=== PATIENT | male | born 1950 ===

== ENCOUNTER → 2018-07-08 08:11 | Outpatient (CLI) | payer MEDICARE, OTHER, SELFPAY ==
--- NOTE | 2018-07-08 08:15 | DI.US.S_ITS ---
PROCEDURE: US ABDOMEN COMPLETE INDICATIONS: RIGHT UPPER QUADRANT PAIN TECHNIQUE: Real-time scanning was performed of the abdominal and retroperitoneal organs, with image documentation. COMPARISON: None. FINDINGS: Liver: Liver is normal in size and homogeneous in echotexture. Gallbladder: Surgically absent. Biliary ducts: Intrahepatic bile ducts are non-dilated. Extrahepatic bile duct caliber measures 4.0 mm. Normal is 6-7 mm or less in diameter, or 10 mm or less post-cholecystectomy. Pancreas: Visualized portions of the pancreas are sonographically normal. Spleen: Spleen is normal in size and homogeneous in echotexture. Kidneys: Kidneys are normal in size and echotexture. Right kidney measures 10.2 cm long; left kidney measures 9.9 cm long. No hydronephrosis or nephrolithiasis. No solid masses. Aorta: Visualized aorta is normal in caliber at less than 3 cm. Iliacs: Proximal common iliac arteries are normal in caliber at less than 2.5 cm. IVC: Intrahepatic inferior vena cava is patent. Miscellaneous: No free abdominal fluid. IMPRESSION: Prior cholecystectomy. Source of right upper quadrant pain is not seen. No biliary distention is found. Dictated by: Pedro Doyle M.D. on 07/08/2018 at 9:37 Approved by: Pedro Doyle M.D. on 07/08/2018 at 9:38
== END ==
PROVIDERS: PCP Internal Medicine; Visit Provider Internal Medicine Gastroenterology
DX: R10.11 Right upper quadrant pain (principal); Z90.49 Acquired absence of other specified parts of digestive tract
CPT/HCPCS: 76700

== ENCOUNTER → 2018-07-10 10:26 | Outpatient (CLI) | payer MEDICARE, OTHER, SELFPAY ==
[2018-07-10 12:11] LABS: Add Manual Diff / Slide Review NO; Basophils Percent Auto 0.6 % (0-2); Eosinophils Percent Auto 1.2 % (2-4); Hemoglobin 14.5 g/dL (13.5-17.5); Lymphocytes Percent Auto 19.8 % (25-40); Mean Corpuscular HGB Conc 34.6 % (30-36); Mean Corpuscular Hemoglobin 31.6 PG (26-34); Mean Corpuscular Volume 91.5 fL (80-100); Monocytes Percent Auto 8.8 % (3-14); Neutrophils Absolute Auto 5100 /uL (3000-5900); Neutrophils Percent Auto 69.6 % (50-75); Platelet Count 250 X10^3/uL (150-400); Red Blood Cell Count 4.59 X10^6/uL (4.5-5.9); White Blood Cell Count 7.4 X10^3/uL (4.5-11.0)
[2018-07-10 12:29] LABS: Alanine Aminotransferase 33 IU/L (21-72); Albumin 4.3 g/dL (3.5-5.0); Albumin Globulin Ratio 1.6 (1.0-2.8); Alkaline Phosphatase 71 U/L (38-126); Aspartate Aminotransferase 30 IU/L (17-59); Bilirubin Total 0.8 mg/dL (0.2-1.3); Blood Urea Nitrogen 23 mg/dL (9-20); Calcium 9.8 mg/dL (8.4-10.2); Carbon Dioxide 30 mmol/L (22-32); Chloride 101 mmol/L (98-107); Estimated Glomerular Filt Rate > 60.0 mL/min (>60); Gamma Glutamyl Transpeptidase 15 U/L (15-73); Globulin 2.7 g/dL (1.7-4.1); Glucose 91 mg/dL (80-110); HEMOLYSIS < 15 (0-50); Lipase 65 U/L (23-300); Potassium 4.9 mmol/L (3.4-5.1); Sodium 140 mmol/L (137-145)
[2018-07-10 12:35] LABS: Erythrocyte Sedimentation Rate 5 MM/HR (0-15)
== END ==
PROVIDERS: PCP Internal Medicine; Visit Provider Internal Medicine
DX: R10.84 Generalized abdominal pain (principal)
CPT/HCPCS: 36415; 80053; 82977; 83690; 85025; 85651

== ENCOUNTER → 2018-07-13 09:23 | Outpatient (CLI) | payer MEDICARE, OTHER, SELFPAY ==
--- NOTE | 2018-07-13 | DI.CT.S_ITS ---
PROCEDURE: CT ABDOMEN PELVIS WO CON INDICATIONS: GENERALIZED RIGHT UPPER QUADRANT ABDOMINAL PAIN TECHNIQUE: After the administration of oral contrast, 5 mm thick sections acquired from the diaphragms to the symphysis. 5 mm coronal and sagittal reformats were performed. For radiation dose reduction, the following was used: automated exposure control, adjustment of mA and/or kV according to patient size. COMPARISON: None. FINDINGS: Image quality: Excellent. ABDOMEN: Lung bases: Lung bases are clear. Heart size is normal. Solid organs: Liver is normal in size. Gallbladder is surgically absent. The spleen and adrenal glands are unremarkable. There is an ill-defined 2.3 cm area of heterogeneous hypoattenuation of the pancreatic head, best seen on axial image 34 of series 2. No hydronephrosis or nephrolithiasis. There is an ill-defined 1.6 cm exophytic soft tissue attenuation mass arising from the superior pole of the right kidney, best seen on axial image 25 of series 2. Peritoneum and bowel: Bowel loops demonstrate normal wall thickness and caliber. No free fluid or air. Nodes and vessels: No retroperitoneal or mesenteric adenopathy by size criteria. Aorta and inferior vena cava are normal in size. Miscellaneous: There is a small 1.0 cm fat-containing umbilical hernia. PELVIS: Genitourinary: Bladder wall thickness is normal. Miscellaneous: No inguinal hernias or adenopathy. Bones: Subcentimeter enostosis within the posteromedial aspect of the left 11th rib. There are multilevel degenerative changes of the lumbar spine with intervertebral disc spacer device at L5-S1. There are postsurgical changes of prior L5 posterior spinous process resection. IMPRESSION: #1. No acute infectious or inflammatory process within the abdomen or pelvis. #2. Suboptimal evaluation of the soft tissues due to the lack of intravenous contrast; within this context, there are possible lesions within the pancreatic head and superior pole of the right kidney. Consider MRI of the abdomen for further evaluation, or followup CT to demonstrate stability. Dictated by: Miguel Rodriguez M.D. on 07/13/2018 at 11:22 Approved by: Miguel Rodriguez M.D. on 07/13/2018 at 11:49
== END ==
PROVIDERS: PCP Internal Medicine; Visit Provider Internal Medicine
DX: R10.11 Right upper quadrant pain (principal)
CPT/HCPCS: 74176

== ENCOUNTER → 2018-07-27 11:04 | Outpatient (CLI) | payer MEDICARE, OTHER, SELFPAY ==
[2018-07-27 11:37] LABS: Blood Urea Nitrogen 19 mg/dL (9-20); Estimated Glomerular Filt Rate > 60.0 mL/min (>60)
== END ==
PROVIDERS: PCP Internal Medicine; Visit Provider Internal Medicine
DX: R10.84 Generalized abdominal pain (principal); R93.8 Abnormal findings on diagnostic imaging of other specified body structures
CPT/HCPCS: 36415; 82565; 84520

== ENCOUNTER → 2018-07-30 14:46 | Outpatient (CLI) | payer MEDICARE, OTHER, SELFPAY ==
--- NOTE | 2018-07-30 | DI.MRI.S_ITS ---
PROCEDURE: MR ABDOMEN WO/W CON INDICATIONS: ABDOMINAL PAIN AND ABNORMAL CT TECHNIQUE: Coronal HASTE, axial 2D FLASH in- and [id number]; axial breath-hold T2 FSE with fat saturation from the hepatic dome to the iliac crests. Oblique coronal thin-slice and radial thick slab HASTE through the biliary system. Dynamic axial VIBE during administration of contrast. Post-contrast coronal VIBE or 2D FLASH with fat saturation from the hepatic dome to the iliac crests. Optional diffusion weighted imaging and ADC may be performed. COMPARISON: [facility], CT, CT ABDOMEN PELVIS WO CON, 07/13/2018, 10:59. FINDINGS: Image quality: There is motion artifact limiting evaluation. Pancreas and biliary system: No peripancreatic edema or fluid collections. No discrete pancreatic mass identified. Pancreatic duct is normal in caliber. Solid organs: No focal hepatic mass lesions. Gallbladder is surgically absent. Spleen is normal in size and enhancement. No adrenal nodules. Kidneys demonstrate no hydronephrosis. Within the superior pole the right kidney anteriorly, there is a round enhancing mass measuring 1.3 x 1.5 x 1.4 cm. The mass abuts the posterior margin of the right hepatic lobe with effacement of the intervening fat plane. Early hepatic invasion cannot be excluded. No evidence of renal vein invasion. No left renal mass. Nodes and vessels: No retroperitoneal or mesenteric adenopathy by size criteria. Aorta and inferior vena cava are normal in size. Bowel and peritoneum: Visualized bowel loops are normal in caliber throughout. No free fluid. Lung bases: No basal pleural effusions. Heart size is normal. Bones and soft tissues: No ventral hernias. Bone marrow is normal in overall signal. IMPRESSION: 1. Small enhancing right renal mass most likely representing renal cell carcinoma. This abuts the right hepatic lobe, with early hepatic invasion not excluded. Dictated by: Vamsi Craig M.D. on 07/30/2018 at 17:55 Approved by: Vamsi Craig M.D. on 07/30/2018 at 18:06
== END ==
PROVIDERS: PCP Internal Medicine; Visit Provider Internal Medicine
DX: R10.9 Unspecified abdominal pain (principal); N28.89 Other specified disorders of kidney and ureter
CPT/HCPCS: 74183; A9579

== ENCOUNTER → 2019-01-28 18:03 | Outpatient (REF) | payer MEDICARE, OTHER, SELFPAY | LOC: LAB 18:03 | PROVIDERS: PCP Internal Medicine; Visit Provider Physician Assistant | DX: S91.002A Unspecified open wound, left ankle, initial encounter (principal) | CPT/HCPCS: 87070; 87075; 87205 ==

== ENCOUNTER → 2019-02-24 07:01 | Outpatient (CLI) | payer MEDICARE, OTHER, SELFPAY ==
[2019-02-24 08:59] LABS: Alanine Aminotransferase 36 IU/L (21-72); Albumin 4.3 g/dL (3.5-5.0); Albumin Globulin Ratio 1.5 (1.0-2.8); Alkaline Phosphatase 77 U/L (38-126); Aspartate Aminotransferase 33 IU/L (17-59); Bilirubin Total 0.8 mg/dL (0.2-1.3); Blood Urea Nitrogen 24 mg/dL (9-20); Calcium 9.6 mg/dL (8.4-10.2); Carbon Dioxide 27 mmol/L (22-32); Chloride 103 mmol/L (98-107); Cholesterol 179 mg/dL (140-199); Estimated Glomerular Filt Rate > 60.0 mL/min (>60); Globulin 2.8 g/dL (1.7-4.1); Glucose 87 mg/dL (80-110); HDL Cholesterol 64 mg/dL (40-60); HEMOLYSIS < 15 (0-50); LDL Cholesterol Calculated 96 mg/dL (<100); Potassium 4.6 mmol/L (3.4-5.1); Sodium 138 mmol/L (137-145); Total Protein 7.1 g/dL (6.3-8.2); Triglycerides 95 mg/dL (35-150)
== END ==
PROVIDERS: PCP Internal Medicine; Visit Provider Internal Medicine
DX: E78.00 Pure hypercholesterolemia, unspecified (principal)
CPT/HCPCS: 36415; 80053; 80061

== ENCOUNTER → 2019-09-15 13:47 | Outpatient (CLI) | payer MEDICARE, OTHER, SELFPAY ==
[2019-09-15 14:32] LABS: Add Manual Diff / Slide Review NO; Basophils Absolute Auto 0 /uL (0-100); Basophils Percent Auto 0.6 % (0-2); Eosinophils Absolute Auto 100 /uL (0-450); Eosinophils Percent Auto 1.6 % (2-4); Hematocrit 40.5 % (41-53); Hemoglobin 14.1 g/dL (13.5-17.5); Lymphocytes Absolute Auto 2000 /uL (1100-4500); Lymphocytes Percent Auto 25.2 % (25-40); Mean Corpuscular HGB Conc 34.9 % (30-36); Mean Corpuscular Hemoglobin 32.1 PG (26-34); Mean Corpuscular Volume 92.1 fL (80-100); Monocytes Absolute Auto 500 /uL (0-900); Monocytes Percent Auto 6.9 % (3-14); Neutrophils Absolute Auto 5200 /uL (1500-7000); Neutrophils Percent Auto 65.7 % (50-75); Platelet Count 253 X10^3/uL (150-400); Red Cell Distribution Width 12.9 % (11.6-14.8); White Blood Cell Count 7.9 X10^3/uL (4.5-11.0)
[2019-09-15 15:13] LABS: Prostate Specific Antigen < 0.064 ng/mL (0.10-4.00)
== END ==
PROVIDERS: PCP Internal Medicine; Visit Provider Internal Medicine
DX: C61 Malignant neoplasm of prostate (principal); R53.82 Chronic fatigue, unspecified
CPT/HCPCS: 36415; 84153; 85025

== ENCOUNTER → 2019-09-29 09:10 | Outpatient (CLI) | payer MEDICARE, OTHER, SELFPAY ==
--- NOTE | 2019-09-29 | DI.RAD.S_ITS ---
PROCEDURE: XR CHEST 2V INDICATIONS: CHRONIC COUGH TECHNIQUE: 2 views of the chest were acquired. COMPARISON: None. FINDINGS: Surgical changes and devices: None. Lungs and pleura: Lungs are clear. No pleural effusions or pneumothorax. Mediastinum: Mediastinal contours are normal. Heart size is normal. Bones and chest wall: No suspicious bony abnormalities. Soft tissues appear unremarkable. IMPRESSION: No acute pulmonary process. Dictated by: Cora Gonzalez M.D. on 09/29/2019 at 12:36 Approved by: Cora Gonzalez M.D. on 09/29/2019 at 12:36
[2019-09-29 16:23] LABS: HEMOLYSIS < 15 (0-50); Iron 101 ug/dL (49-181)
[2019-09-29 16:30] LABS: Transferrin 276 mg/dL (206-381)
[2019-10-01 14:03] LABS: Percent Iron Saturation 30 % (20-50); Total Iron Binding Capacity 340 ug/dL (261-462)
== END ==
PROVIDERS: PCP Internal Medicine; Visit Provider Internal Medicine
DX: R05 Cough (principal); D64.9 Anemia, unspecified
CPT/HCPCS: 36415; 71046; 83540; 83550; 85045

== ENCOUNTER → 2020-04-27 07:03 | Outpatient (CLI) | payer MEDICARE, OTHER, SELFPAY ==
[2020-04-27 08:44] LABS: Add Manual Diff / Slide Review NO; Basophils Absolute Auto 100 /uL (0-100); Basophils Percent Auto 0.8 % (0-2); Eosinophils Absolute Auto 200 /uL (0-450); Eosinophils Percent Auto 3.4 % (2-4); Hemoglobin 14.8 g/dL (13.5-17.5); Lymphocytes Absolute Auto 1900 /uL (1100-4500); Lymphocytes Percent Auto 29.9 % (25-40); Mean Corpuscular HGB Conc 34.4 % (30-36); Mean Corpuscular Hemoglobin 32.1 PG (26-34); Mean Corpuscular Volume 93.2 fL (80-100); Monocytes Absolute Auto 600 /uL (0-900); Monocytes Percent Auto 9.2 % (3-14); Neutrophils Absolute Auto 3600 /uL (1500-7000); Neutrophils Percent Auto 56.7 % (50-75); Platelet Count 275 X10^3/uL (150-400); Red Blood Cell Count 4.61 X10^6/uL (4.5-5.9); Red Cell Distribution Width 12.8 % (11.6-14.8); White Blood Cell Count 6.4 X10^3/uL (4.5-11.0)
[2020-04-27 08:55] LABS: Alanine Aminotransferase 29 IU/L (<50); Albumin 4.4 g/dL (3.5-5.0); Albumin Globulin Ratio 1.5 (1.0-2.8); Alkaline Phosphatase 82 U/L (38-126); Aspartate Aminotransferase 36 IU/L (17-59); BUN Creatinine Ratio 21.2 (6-22); Bilirubin Total 0.9 mg/dL (0.2-1.3); Blood Urea Nitrogen 22 mg/dL (9-20); Calcium 9.6 mg/dL (8.4-10.2); Carbon Dioxide 26 mmol/L (22-32); Chloride 103 mmol/L (98-107); Cholesterol 175 mg/dL (140-199); Estimated Glomerular Filt Rate > 60.0 mL/min (>60); Globulin 2.9 g/dL (1.7-4.1); Glucose 95 mg/dL (80-110); HDL Cholesterol 69 mg/dL (40-60); HEMOLYSIS < 15 (0-50); LDL Cholesterol Calculated 92 mg/dL (<100); Potassium 4.7 mmol/L (3.4-5.1); Sodium 137 mmol/L (137-145); Total Protein 7.3 g/dL (6.3-8.2); Triglycerides 70 mg/dL (35-150)
[2020-04-27 09:42] LABS: Hep C Virus Ab w/Reflex Quant NEGATIVE s/c (NEGATIVE)
== END ==
PROVIDERS: PCP Internal Medicine; Referring Provider Internal Medicine; Visit Provider Internal Medicine
DX: Z00.00 Encounter for general adult medical examination without abnormal findings (principal); E78.00 Pure hypercholesterolemia, unspecified; D64.9 Anemia, unspecified
CPT/HCPCS: 36415; 80053; 80061; 85025; 86803

== ENCOUNTER → 2020-10-23 14:47 | Outpatient (CLI) | payer MEDICARE, OTHER, SELFPAY ==
[2020-10-23 16:22] LABS: Prostate Specific Antigen Scrn < 0.064 ng/mL (0.1-4.0)
== END ==
PROVIDERS: PCP Internal Medicine; Referring Provider Internal Medicine; Visit Provider Internal Medicine
DX: C61 Malignant neoplasm of prostate (principal); Z12.5 Encounter for screening for malignant neoplasm of prostate
CPT/HCPCS: 36415; G0103

== ENCOUNTER → 2020-10-24 10:41 | Outpatient (CLI) | payer MEDICARE, OTHER, SELFPAY ==
--- NOTE | 2020-10-24 | DI.US.S_ITS ---
PROCEDURE: US SCROTUM INDICATIONS: The patient feels bilateral lungs. TECHNIQUE: Real-time scanning was performed of the scrotum and testicles, with image documentation. Color and pulse Doppler interrogation was performed of both testicles. COMPARISON: None. FINDINGS: Right: Testicle is normal in size at 3.8 x 1.9 x 2.9 cm, and homogenous in echotexture. There are a couple of epididymal cysts measuring 0.8 x 0.5 x 0.4 cm and 0.7 x 0.4 x 0.6 cm, correlating the patient's palpable abnormality. Epididymis is normal in overall size and morphology. No hydrocele or varicoceles. Overlying scrotal skin is normal in thickness. Left: Testicle is normal in size at 4.3 x 1.9 x 2 point cm, and homogeneous in echotexture. There is a 0.7 x 0.5 x 0.4 cm cyst in the left epididymal head, correlating with the palpable abnormality. The epididymal tail appears prominent with foci of calcification. No hydrocele or varicoceles. Overlying scrotal skin is normal in thickness. Doppler: Color and pulse Doppler demonstrate normal and symmetric arterial flow in both testicles. IMPRESSION: 1. Normal ultrasound appearance of testicles. No findings to suggest testicular torsion or testicular masses. 2. The patient's palpable abnormalities correspond to bilateral epididymal cysts. 3. Prominent left epididymal tail, demonstrating foci of calcifications but no increased vascularity. The clinical significance of the finding is indeterminate. If clinically indicated, a follow-up ultrasound may be obtained. Dictated by: Nani Ron M.D. on 10/24/2020 at 13:30 Approved by: Nani Ron M.D. on 10/24/2020 at 13:37
== END ==
PROVIDERS: PCP Internal Medicine; Referring Provider Internal Medicine; Visit Provider Internal Medicine
DX: N50.3 Cyst of epididymis (principal)
CPT/HCPCS: 76870

== ENCOUNTER → 2021-03-19 14:54 | Outpatient (CLI) | payer MEDICARE, OTHER, SELFPAY ==
[2021-03-19 15:35] LABS: Add Manual Diff / Slide Review NO; Basophils Absolute Auto 0 /uL (0-100); Basophils Percent Auto 0.5 % (0-2); Eosinophils Absolute Auto 100 /uL (0-450); Eosinophils Percent Auto 1.5 % (2-4); Hematocrit 39.3 % (41-53); Hemoglobin 13.8 g/dL (13.5-17.5); Lymphocytes Absolute Auto 1900 /uL (1100-4500); Lymphocytes Percent Auto 20.9 % (25-40); Mean Corpuscular HGB Conc 35.1 % (30-36); Mean Corpuscular Hemoglobin 32.5 PG (26-34); Mean Corpuscular Volume 92.7 fL (80-100); Monocytes Absolute Auto 700 /uL (0-900); Monocytes Percent Auto 7.4 % (3-14); Neutrophils Absolute Auto 6300 /uL (1500-7000); Neutrophils Percent Auto 69.7 % (50-75); Platelet Count 240 X10^3/uL (150-400); Red Blood Cell Count 4.24 X10^6/uL (4.5-5.9); Red Cell Distribution Width 12.7 % (11.6-14.8)
[2021-03-19 16:25] LABS: TSH w/ Reflex to FT4 0.58 uIU/mL (0.47-4.68)
== END ==
PROVIDERS: PCP Internal Medicine; Referring Provider Internal Medicine; Visit Provider Internal Medicine
DX: G47.33 Obstructive sleep apnea (adult) (pediatric) (principal); R53.82 Chronic fatigue, unspecified
CPT/HCPCS: 36415; 84443; 85025

== ENCOUNTER → 2021-03-21 10:30 | Outpatient (CLI) | payer MEDICARE, OTHER, SELFPAY ==
[2021-03-21 12:03] LABS: HEMOLYSIS < 15 (0-50); Iron 93 ug/dL (49-181)
[2021-03-21 12:13] LABS: Percent Iron Saturation 29 % (20-50); Total Iron Binding Capacity 317 ug/dL (261-462); Transferrin 252 mg/dL (206-381)
[2021-03-21 12:38] LABS: Ferritin 84 ng/mL (18-464)
== END ==
PROVIDERS: PCP Internal Medicine; Referring Provider Internal Medicine; Visit Provider Internal Medicine
DX: D64.9 Anemia, unspecified (principal)
CPT/HCPCS: 82728; 83540; 83550

== ENCOUNTER → 2021-07-24 11:39 | Outpatient (CLI) | payer MEDICARE, OTHER, SELFPAY ==
--- NOTE | 2021-07-24 | DI.MRI.S_ITS ---
PROCEDURE: MR LUMBAR SPINE WO CON INDICATIONS: Radiculopathy, lumbar region TECHNIQUE: Noncontrast sagittal T1 spin echo and T2 fast echo, sagittal STIR, axial T1 and T2 fast spin echo through the lumbar spine. In cases with scoliosis, additional coronal T2 fast spin echo may be performed. COMPARISON: [facility] [place], CR, XR LUMBAR SPINE 2 OR 3 VIEWS, 07/10/2021, 10:39. FINDINGS: Image quality: Excellent. Alignment and Curvature: There is normal bony alignment. Bones: Postsurgical changes compatible with L5-S1 interbody fusion and L5 laminectomy noted. Marrow is of normal overall signal. No acute vertebral body compression fractures. Spinal Cord: Conus medullaris terminates at the L1 level. Visualized cord demonstrates normal signal and size. Paraspinous Soft Tissues: No paravertebral masses. T12-L1: Loss of disc signal. No central stenosis. No neural foraminal narrowing. No neural compression. L1-L2: Loss of disc signal. Mild, diffuse disc bulge. Mild narrowing of the central canal. Mild bilateral neural foraminal narrowing. No neural compression. L2-L3: Loss of disc signal. Mild, diffuse disc bulge. Mild narrowing of the central canal. Mild bilateral neural foraminal narrowing. No neural compression. Fissure noted in the posterior annulus. L3-L4: Loss of disc signal. Mild, diffuse disc bulge. Mild bilateral facet hypertrophy. Mild to moderate narrowing of the central canal. Moderate bilateral neural foraminal narrowing. No neural compression L4-L5: Loss of disc signal. Mild, diffuse disc bulge. Small central disc protrusion. Mild bilateral facet hypertrophy. Mild narrowing of the central canal. Mild to moderate bilateral neural foraminal narrowing. No neural compression. Fissure noted in the posterior annulus. L5-S1: Status post discectomy and interbody fusion. Mild bilateral facet hypertrophy. No central stenosis. Mild right moderate left neural foraminal narrowing. No neural compression. IMPRESSION: 1. Status post L5-S1 interbody fusion and L5 laminectomy. 2. Mild multilevel degenerative disease. 3. Multiple mild multilevel facet arthropathy. 4. No severe central canal narrowing. 5. No severe neural foraminal narrowing. 6. No neural compression. 7. L2-L3 and L4-L5 disc annulus fissures. Dictated by: Jeannie Bazan MD, PhD on 07/24/2021 at 17:26 Approved by: Jeannie Bazan MD, PhD on 07/24/2021 at 17:29
== END ==
PROVIDERS: PCP Internal Medicine; Referring Provider Orthopaedic Surgery Orthopaedic Surgery of the Spine; Visit Provider Orthopaedic Surgery Orthopaedic Surgery of the Spine
DX: M51.16 Intervertebral disc disorders with radiculopathy, lumbar region (principal); M47.26 Other spondylosis with radiculopathy, lumbar region; M47.27 Other spondylosis with radiculopathy, lumbosacral region; Z98.1 Arthrodesis status
CPT/HCPCS: 72148

== ENCOUNTER → 2021-08-24 10:43 | Outpatient (CLI) | payer MEDICARE, OTHER, SELFPAY ==
--- NOTE | 2021-08-24 | DI.US.S_ITS ---
PROCEDURE: US PERIPH VENOUS LOW EXTREM RT INDICATIONS: RIGHT CALF DVT TECHNIQUE: Real-time imaging, as well as color and pulse Doppler interrogation, were performed of the lower extremity deep veins from the inguinal ligament to the popliteal fossa. COMPARISON: None. FINDINGS: The common femoral, femoral and popliteal veins are normally compressible, and free of intraluminal thrombus. Color and pulse Doppler demonstrate normal phasic intraluminal flow. There is normal augmentation response to distal compression maneuver. At the area of palpable concern involving the right posterior calf, there is a 7 x 5 x 5 mm superficial nonvascular focus seen. IMPRESSION: Negative for deep venous thrombosis. A 7 mm nonvascular focus is seen superficially corresponding to the area of palpable abnormality. This is nonspecific, although it may be related to a sebaceous cyst or potentially a thrombosed portion of a superficial vein. Dictated by: Bryson Roa M.D. on 08/24/2021 at 10:51 Approved by: Bryson Roa M.D. on 08/24/2021 at 10:53
== END ==
PROVIDERS: PCP Internal Medicine; Referring Provider Internal Medicine; Visit Provider Internal Medicine
DX: I82.4Z1 Acute embolism and thrombosis of unspecified deep veins of right distal lower extremity (principal)
CPT/HCPCS: 93971

== ENCOUNTER → 2021-08-28 11:24 | Outpatient (CLI) | payer MEDICARE, OTHER, SELFPAY ==
--- NOTE | 2021-08-28 | DI.RAD.S_ITS ---
PROCEDURE: XR THORACIC SPINE 2V INDICATIONS: Pain in thoracic spine TECHNIQUE: 3 views of the thoracic spine were acquired. COMPARISON: None. FINDINGS: Bones: No fractures or dislocations. No suspicious bony lesions. Twelve pairs of ribs are noted, and appear intact where visualized. Moderate degenerative disc changes noted throughout the thoracic spine. Soft tissues: No paravertebral stripe thickening. Cholecystectomy clips. IMPRESSION: 1. Moderate multilevel degenerative disc disease. 2. No fracture. No acute osseous lesion. If symptoms and/or clinical suspicion for pathology persists, evaluation with MRI should be considered for further assessment. Dictated by: Jeannie Bazan MD, PhD on 08/28/2021 at 16:48 Approved by: Jeannie Bazan MD, PhD on 08/28/2021 at 16:54
== END ==
PROVIDERS: PCP Internal Medicine; Referring Provider Internal Medicine; Visit Provider Internal Medicine
DX: M54.6 Pain in thoracic spine (principal); M47.814 Spondylosis without myelopathy or radiculopathy, thoracic region; G89.29 Other chronic pain
CPT/HCPCS: 72070

== ENCOUNTER → 2021-09-25 14:35 | Outpatient (CLI) | payer MEDICARE, OTHER, SELFPAY ==
--- NOTE | 2021-09-25 | DI.US.S_ITS ---
PROCEDURE: US PERIPH VENOUS LOW EXTREM LT INDICATIONS: EDEMA. MASS TECHNIQUE: Real-time imaging, as well as color and pulse Doppler interrogation, were performed of the lower extremity deep veins from the inguinal ligament to the popliteal fossa. COMPARISON: None. FINDINGS: The common femoral, femoral and popliteal veins are normally compressible, and free of intraluminal thrombus. Color and pulse Doppler demonstrate normal phasic intraluminal flow. There is normal augmentation response to distal compression maneuver. IMPRESSION: No evidence of left lower extremity DVT. Dictated by: Luis F Serrato M.D. on 09/25/2021 at 15:54 Approved by: Luis F Serrato M.D. on 09/25/2021 at 16:38
== END ==
PROVIDERS: PCP Internal Medicine; Referring Provider Internal Medicine; Visit Provider Internal Medicine
DX: R22.42 Localized swelling, mass and lump, left lower limb (principal)
CPT/HCPCS: 93971

== ENCOUNTER 2021-11-21 13:45 | Outpatient (RCR) | payer MEDICARE, OTHER, SELFPAY ==
--- NOTE | 2021-10-16 18:01 | PT.OIE ---
Current Diagnoses Other chronic pain (10/16/21) Low back pain, unspecified (10/16/21) Pain in thoracic spine (10/16/21) Past Medical History (Last Reviewed 10/15/21 @ 15:39 by Parth Weinberg MD) Finger laceration Visit Care Team Role Provider Type Cameron Johnson MD Attending Provider Physician Family Provider Primary Care Provider Referring Provider Specialty: Internal Medicine Address: [address] [place] [address], [facility] Email: [email or web address] Physical Therapy Initial Evaluation PT-OP-A Visit Information Start: 10/10/21 17:47 Freq: Status: Active Protocol: Document 10/16/21 09:06 MARY ALICE (Rec: 10/16/21 09:50 JG [id number]) Out-Patient Physical Therapy Visit Information Visit Information Visit Type Initial Evaluation Visit Note SPT Ángela was directly supervised by CARRIE Shin Visit Start Time 09:06 Visit Stop Time 09:48 Total Visit Minutes 42 Visit Number 1 Number of PICTURES EDITOR Visits 0 PT-OP-B Current Condition Start: 10/10/21 17:47 Freq: Status: Active Protocol: Document 10/16/21 09:06 JG (Rec: 10/16/21 09:50 JG [id number]) Current Condition History of Current Condition Onset Date 2004 Current Complaints LB pain w/bilat radiating pain down to calfs, thoracic muscle pain History of Current Condition Lumbar injury in 2004 mounting care tires. PT 2004-. L5-S1 fusion in 2005 w/poor results. 2008 L5-S1 surgery redone. Mild-mod improvement. Adapted lifestyle since. 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 Bilat pain in lumbosacral region w/radiating pain down to calfs. Similar side to side. See pt provided paperwork scanned into chart. Prior Treatments and Tests L5-S1 fusion in 2005 after 2004 injury, surgery to redo 2007. spinal block 2020 w/no relief. PT, medication, specialists. X-ray and MRI imaging 08/07 w/no evidence of injury or significant defect that required surgery. Imaging does show multilevel degenerative disease, multiple mild multilevel facet arthropathy, L2-L3 and L4-L5 disc annulus fissures. See pt provided paperwork scanned into chart. Future Testing and Treatments Planned None planned currently Treatment Goals Patient/Caregiver Goals exercises and stretches to improve thoracic and lumbar spine posture and pain PT-OP-C Subjective Start: 10/10/21 17:47 Freq: Status: Active Protocol: Document 10/16/21 09:06 JG (Rec: 10/16/21 09:50 JG [id number]) OP-PT Pain Assessment Location Lumbar Intensity 8 Scale Used Numeric (0 - 10) Description Aching,Burning,Radiating Pain Duration 8 at worst, 1 at best, after a few hours Radiating Location bilat pelvic floor, lateral, posterior, and medial thigh, post/lat calf Pain Aggravating Factors None,Position,ADL's,Activity, Exercise,Standing,Sitting, Walking,Stair Climbing,Bending ,Lifting,Coughing Pain Alleviating Factors Heat,Massage,Distraction Other Pain Alleviating Factors self-traction in hooklying w/ calfs on sofa while on floor PT-OP-F Manual Assessment Start: 10/10/21 17:47 Freq: Status: Active Protocol: Document 10/16/21 09:06 JG (Rec: 10/16/21 16:06 JG [id number]) Manual Assessments Soft Tissue Assessment Soft Tissue Mobility Assessment Hypertonic lateral oblique and lumbar paraspinal muscles bilat PT-OP-J Posture/Palpation/Skin Start: 10/10/21 17:47 Freq: Status: Active Protocol: Document 10/16/21 09:06 JG (Rec: 10/16/21 09:54 JG [id number]) Posture Evaluation Lilibeth Postural Classification System Lumbar Protective Mechanism Left AP 0 Lumbar Protective Mechanism Right AP 0 Lumbar Protective Mechanism Left PA 0 Lumbar Protective Mechanism Right PA 0 Palpation Assessment Location Pelvis Palpation Details Illiac crest appear to be level. ASIS and PSIS appear to be level. PSIS is where pt feels is the margoth of pain PT-OP-K Range of Motion Start: 10/10/21 17:47 Freq: Status: Active Protocol: Document 10/16/21 09:06 JG (Rec: 10/16/21 09:50 JG [id number]) Lumbar Spine Range of Motion Lumbar Spine Active Degrees Flexion 30 Extension 10 Comments w/flex quadrants very limited and shows limited lumbar motion w/flattening of lumbar spine; SB goes into flex and into contralateral rotation and notes contralateral tightness in back Hip Goniometric Range of Motion Hip Right Passive Comments R 82 w/o pelvis movement, 105 with L 93 w/o pelvis movement, 105 with Right Active Flexion w/Knee Flexed 82 Straight Leg Raise 75 Comments 108 flex w/innominate& lumbosacral motion Left Active Flexion w/Knee Flexed 93 Straight Leg Raise 55 Comments 105 flex w/innominate& lumbosacral motion PT-OP-L Special Tests Start: 10/10/21 17:47 Freq: Status: Active Protocol: Document 10/16/21 09:06 JG (Rec: 10/16/21 09:50 JG [id number]) Special Tests Lumbar Spine Special Tests HS Test Results lacking 20 deg to neutral w/90 /90 HS testing L: R lacking 24 deg Straight Leg Raise Test Results positive Comments increased w/DF bilat, not increased w/cervical flex PT-OP-M Strength Start: 10/10/21 17:47 Freq: Status: Active Protocol: Document 10/16/21 09:06 JG (Rec: 10/16/21 09:50 JG [id number]) Hip Strength Hip Manual Muscle Testing Right Flexion (L2) 5 Normal Extension (S1) 4 Good Abduction 3 Fair Adduction 4 Good External Rotation 4 Good Internal Rotation 5 Normal Left Flexion (L2) 5 Normal Extension (S1) 4 Good Abduction 4 Good Adduction 4 Good External Rotation 4 Good Internal Rotation 5 Normal Knee Strength Knee Manual Muscle Testing Right Flexion (S2) 5 Normal Extension (L3) 5 Normal Left Flexion (S2) 5 Normal Extension (L3) 5 Normal Ankle/Foot Strength Ankle and Foot Manual Muscle Testing Right Dorsiflexion (L4) 5 Normal Plantarflexion (S1) 5 Normal Left Dorsiflexion (L4) 5 Normal Plantarflexion (S1) 5 Normal Comments 20 heel raises B PT-OP-T Assessment and Plan Start: 10/10/21 17:47 Freq: Status: Active Protocol: Document 10/16/21 09:06 JG (Rec: 10/16/21 09:50 JG [id number]) Physical Therapy Assessment Rehab Potential Rehabilitation Potential Good Evaluation Complexity Number of Personal Factors/Comorbidities 3 or More Number of Body Systems Impaired 4 or More Clinical Presentation at Evaluation Stable Impairments Impairments Activity Tolerance,Functional Activities,Functional Mobility ,Pain,Posture,ROM,Strength Goals 4 Impairment Walking up and down hills increases lumbar pain Software Development Engineer Goal (LTG) Walking up and down hills does not increase lumbar pain LTG Duration 01/14/22 3 Impairment Sleeping is freq difficult due to lumbar pain Short Term Goal (STG) Pt will be proficient in sleep propping STG Duration 11/15/21 Half-Way Goal (LTG) Pt does not experience sleep disturbances due to lumbar pain LTG Duration 01/14/22 2 Impairment Thoracic pain w/standing and completing chest-high work Half-Way Goal (LTG) Able to complete 30 minutes of chest-high work in standing w /o thoracic pain LTG Duration 01/14/22 1 Impairment Lumbar pain w/lifting items heavier than 15+pounds, sitting for >1 hour, standing Short Term Goal (STG) Pt will be able to demostrate good lifting mechanics w/light weight STG Duration 11/15/21 Half-Way Goal (LTG) Pt is able to lift medium weights and thigh-high heavy items without increase in pain LTG Duration 01/14/22 Assessment Summary Assessment Pt is 71 year old male with long history of lumbosacral and thoracic pain. He has undergone two L5-S1 surgeries and utilized multiple treatments including PT, medication, spinal block with mild to mod results. Pt reinjured his lumbosacral region while landscaping in May and has not had relief using typical strategies. Pt was previously able to complete home and gardening tasks with altered methods like bracing, but currently is unable to lift more than 15 pounds, walk up/down hills, sit for >1 hour without pain. Pt is also experiencing chronic thoracic back pain that is typically relieved w/ stretching and ceasing chest- high activity. Pt has limited lumbar flex and ext, positive SL raise, painful lumbar ext, and painful right and left flex quadrant. Pt would benefit PT for increasing pain -free lumbar ROM and decrease neural tension which will likely increase pain-free lifting ability, ability to ascend/descend hills without pain, and sit for >1 without pain. Physical Therapy Plan Frequency and Duration Frequency of Treatment 2x/Week Duration of Treatment 3 months Plan of Care Start Date 10/16/21 Plan of Care End Date 01/14/22 Therapeutic Interventions Therapeutic Interventions Aquatic Therapy,Gait Training, Home Exercise Program,Joint Mobilizations,Manual Therapy, Neuromuscular Re-education, Patient/Caregiver Education, Self-Care/Home Management,Soft Tissue Mobilization,Taping, Therapeutic Activities, Therapeutic Exercises Modalities Electric Stimulation,Hot Packs Next Visit Focus/Plan Next Note Type Treatment Note Next Visit Plan Complete Oswestry questionnaire (missing last 4 questions). Active lumbar ROM exercises. Core training. Lumbar mob. Pelvis mobs. SI joint assessment.
--- NOTE | 2021-10-16 18:10 | PT.OPPOC ---
Physical, Occupational & Speech Therapy At [facility] Current Diagnoses Other chronic pain (10/16/21) Low back pain, unspecified (10/16/21) Pain in thoracic spine (10/16/21) Visit Care Team Role Provider Type Cameron Johnson MD Attending Provider Physician Family Provider Primary Care Provider Referring Provider Specialty: Internal Medicine Address: [address] [place] [address], [facility] Email: [email or web address] Of Care PT-OP-T Assessment and Plan Start: 10/10/21 17:47 Freq: Status: Active Protocol: Document 10/16/21 09:06 MARY ALICE (Rec: 10/16/21 09:50 JRadha [id number]) Physical Therapy Assessment Rehab Potential Rehabilitation Potential Good Evaluation Complexity Number of Personal Factors/Comorbidities 3 or More Number of Body Systems Impaired 4 or More Clinical Presentation at Evaluation Stable Impairments Impairments Activity Tolerance,Functional Activities,Functional Mobility ,Pain,Posture,ROM,Strength Goals 4 Impairment Walking up and down hills increases lumbar pain Snf Goal (LTG) Walking up and down hills does not increase lumbar pain LTG Duration 01/14/22 3 Impairment Sleeping is freq difficult due to lumbar pain Short Term Goal (STG) Pt will be proficient in sleep propping STG Duration 11/15/21 Administrative Operations Coordinator Goal (LTG) Pt does not experience sleep disturbances due to lumbar pain LTG Duration 01/14/22 2 Impairment Thoracic pain w/standing and completing chest-high work Administrative Operations Coordinator Goal (LTG) Able to complete 30 minutes of chest-high work in standing w /o thoracic pain LTG Duration 01/14/22 1 Impairment Lumbar pain w/lifting items heavier than 15+pounds, sitting for >1 hour, standing Short Term Goal (STG) Pt will be able to demostrate good lifting mechanics w/light weight STG Duration 11/15/21 Snf Goal (LTG) Pt is able to lift medium weights and thigh-high heavy items without increase in pain LTG Duration 01/14/22 Assessment Summary Assessment Pt is 71 year old male with long history of lumbosacral and thoracic pain. He has undergone two L5-S1 surgeries and utilized multiple treatments including PT, medication, spinal block with mild to mod results. Pt reinjured his lumbosacral region while landscaping in May and has not had relief using typical strategies. Pt was previously able to complete home and gardening tasks with altered methods like bracing, but currently is unable to lift more than 15 pounds, walk up/down hills, sit for >1 hour without pain. Pt is also experiencing chronic thoracic back pain that is typically relieved w/ stretching and ceasing chest- high activity. Pt has limited lumbar flex and ext, positive SL raise, painful lumbar ext, and painful right and left flex quadrant. Pt would benefit PT for increasing pain -free lumbar ROM and decrease neural tension which will likely increase pain-free lifting ability, ability to ascend/descend hills without pain, and sit for >1 without pain. Physical Therapy Plan Frequency and Duration Frequency of Treatment 2x/Week Duration of Treatment 3 months Plan of Care Start Date 10/16/21 Plan of Care End Date 01/14/22 Therapeutic Interventions Therapeutic Interventions Aquatic Therapy,Gait Training, Home Exercise Program,Joint Mobilizations,Manual Therapy, Neuromuscular Re-education, Patient/Caregiver Education, Self-Care/Home Management,Soft Tissue Mobilization,Taping, Therapeutic Activities, Therapeutic Exercises Modalities Electric Stimulation,Hot Packs Next Visit Focus/Plan Next Note Type Treatment Note Next Visit Plan Complete Oswestry questionnaire (missing last 4 questions). Active lumbar ROM exercises. Core training. Lumbar mob. Pelvis mobs. SI joint assessment. Plan of Care Dates Plan of Care Start Date 10/16/21 Plan of Care End Date 01/14/22 Electronically Signed by: Aleida Aponte, PT 10/16/21 5250 Please Sign and Return: I have reviewed this Plan of Care and certify that the skilled therapy services above are required to meet the patient?s needs. Physician Signature Date Printed Name and Credentials Clinical Instructor Signature Printed Name and Credentials
--- NOTE | 2021-10-23 17:39 | PT.OTN ---
Current Diagnoses Other chronic pain (10/23/21) Low back pain, unspecified (10/23/21) Pain in thoracic spine (10/23/21) Physical Therapy Treatment Note PT-OP-A Visit Information Start: 10/10/21 17:47 Freq: Status: Active Protocol: Document 10/23/21 11:55 MARY ALICE (Rec: 10/23/21 12:14 MARY ALICE [id number]) Out-Patient Physical Therapy Visit Information Visit Information Visit Type Treatment Note Visit Note BASILIO Motta was directly supervised by CARRIE Shin Visit Start Time 10:33 Visit Stop Time 11:17 Total Visit Minutes 44 Visit Number 2 Number of AUTO DETAILER Visits 0 PT-OP-B Current Condition Start: 10/10/21 17:47 Freq: Status: Active Protocol: Document 10/16/21 09:06 MARY ALICE (Rec: 10/16/21 09:50 MARY ALICE [id number]) Current Condition History of Current Condition Onset Date 2004 Current Complaints LB pain w/bilat radiating pain down to calfs, thoracic muscle pain History of Current Condition Lumbar injury in 2004 mounting care tires. PT 2004-. L5-S1 fusion in 2005 w/poor results. 2008 L5-S1 surgery redone. Mild-mod improvement. Adapted lifestyle since. 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 Bilat pain in lumbosacral region w/radiating pain down to calfs. Similar side to side. See pt provided paperwork scanned into chart. Prior Treatments and Tests L5-S1 fusion in 2005 after 2004 injury, surgery to redo 2007. spinal block 2020 w/no relief. PT, medication, specialists. X-ray and MRI imaging 08/07 w/no evidence of injury or significant defect that required surgery. Imaging does show multilevel degenerative disease, multiple mild multilevel facet arthropathy, L2-L3 and L4-L5 disc annulus fissures. See pt provided paperwork scanned into chart. Future Testing and Treatments Planned None planned currently Treatment Goals Patient/Caregiver Goals exercises and stretches to improve thoracic and lumbar spine posture and pain PT-OP-C Subjective Start: 10/10/21 17:47 Freq: Status: Active Protocol: Document 10/23/21 11:55 MARY ALICE (Rec: 10/23/21 12:14 MARY ALICE [id number]) OP-PT Subjective Patient Comments Patient Comments Pt was flipping heavy mattress w/ and flared back pain. Pt states 5 hours of sleep is a good night of rest for him due to family stress. Patient Questionnaires Oswestry Low Back Index Oswestry Score 16/50 Oswestry Impairment 20 to 39% Impaired (Score 20- 39) PT-OP-F Manual Assessment Start: 10/10/21 17:47 Freq: Status: Active Protocol: Document 10/23/21 11:55 JG (Rec: 10/23/21 12:14 JG [id number]) Manual Assessments Joint Mobility Assessment Joint Mobility Assessment Scour: negative bilat Sacrum a/p: negative Pelvic compression: negative Pelvic distraction: negative SI joint: limited ER bilat, equal gapping IR bilat PT-OP-J Posture/Palpation/Skin Start: 10/10/21 17:47 Freq: Status: Active Protocol: Document 10/16/21 09:06 JG (Rec: 10/16/21 09:54 JG [id number]) Posture Evaluation Lilibeth Postural Classification System Lumbar Protective Mechanism Left AP 0 Lumbar Protective Mechanism Right AP 0 Lumbar Protective Mechanism Left PA 0 Lumbar Protective Mechanism Right PA 0 Palpation Assessment Location Pelvis Palpation Details Illiac crest appear to be level. ASIS and PSIS appear to be level. PSIS is where pt feels is the margoth of pain PT-OP-K Range of Motion Start: 10/10/21 17:47 Freq: Status: Active Protocol: Document 10/16/21 09:06 JG (Rec: 10/16/21 09:50 JG [id number]) Lumbar Spine Range of Motion Lumbar Spine Active Degrees Flexion 30 Extension 10 Comments w/flex quadrants very limited and shows limited lumbar motion w/flattening of lumbar spine; SB goes into flex and into contralateral rotation and notes contralateral tightness in back Hip Goniometric Range of Motion Hip Right Passive Comments R 82 w/o pelvis movement, 105 with L 93 w/o pelvis movement, 105 with Right Active Flexion w/Knee Flexed 82 Straight Leg Raise 75 Comments 108 flex w/innominate& lumbosacral motion Left Active Flexion w/Knee Flexed 93 Straight Leg Raise 55 Comments 105 flex w/innominate& lumbosacral motion PT-OP-L Special Tests Start: 10/10/21 17:47 Freq: Status: Active Protocol: Document 10/16/21 09:06 JG (Rec: 10/16/21 09:50 J [id number]) Special Tests Lumbar Spine Special Tests HS Test Results lacking 20 deg to neutral w/90 /90 HS testing L: R lacking 24 deg Straight Leg Raise Test Results positive Comments increased w/DF bilat, not increased w/cervical flex PT-OP-M Strength Start: 10/10/21 17:47 Freq: Status: Active Protocol: Document 10/16/21 09:06 JG (Rec: 10/16/21 09:50 J [id number]) Hip Strength Hip Manual Muscle Testing Right Flexion (L2) 5 Normal Extension (S1) 4 Good Abduction 3 Fair Adduction 4 Good External Rotation 4 Good Internal Rotation 5 Normal Left Flexion (L2) 5 Normal Extension (S1) 4 Good Abduction 4 Good Adduction 4 Good External Rotation 4 Good Internal Rotation 5 Normal Knee Strength Knee Manual Muscle Testing Right Flexion (S2) 5 Normal Extension (L3) 5 Normal Left Flexion (S2) 5 Normal Extension (L3) 5 Normal Ankle/Foot Strength Ankle and Foot Manual Muscle Testing Right Dorsiflexion (L4) 5 Normal Plantarflexion (S1) 5 Normal Left Dorsiflexion (L4) 5 Normal Plantarflexion (S1) 5 Normal Comments 20 heel raises B PT-OP-Q Treatments Start: 10/10/21 17:47 Freq: Status: Active Protocol: Document 10/23/21 11:55 JG (Rec: 10/23/21 12:14 JG [id number]) Therapeutic Exercises Supine Exercises Piriformis Stretch Supine Exercise Name Cross body to opposite shld Side bilateral Reps/Minutes 2x30 seconds Comments mod cues to stay w/i painfree stretching range Lumbar Rotation Side bilateral Reps/Minutes 1x20 Comments mod cues to limit ROM, use core to pull back to midline Pelvic Tilts Reps/Minutes 1x10 Comments min cues to not activate gluts Standing Exercises Squats Standing Exercise Name 1. Sit to stand 2. squat ( hover above chair) Side bilateral Equipment Used L2 resistance band loop around ankles Reps/Minutes 2x12 Comments mod cues to activate gluts Hip Abduction Standing Exercise Name hip abduction Side bilateral Equipment Used L2 resistance band loop around ankles Reps/Minutes 2x15 Comments max cues for not tilting upper body, lead w/heels Manual Therapy Treatment Soft Tissue Mobilization Gluts Mobilization Type Sustained Pressure Intensity/Depth Moderate Body Position Prone Comments w/active ER/IR Joint Mobilizations Hip Joint R hip joint Body Position Prone Comments on axis ER functional mob w/ manual facilitation into ER rotation after PT-OP-T Assessment and Plan Start: 10/10/21 17:47 Freq: Status: Active Protocol: Document 10/23/21 11:55 JG (Rec: 10/23/21 12:14 JG [id number]) Physical Therapy Assessment Goals 4 Impairment Walking up and down hills increases lumbar pain Care Home Goal (LTG) Walking up and down hills does not increase lumbar pain LTG Duration 01/14/22 3 Impairment Sleeping is freq difficult due to lumbar pain Short Term Goal (STG) Pt will be proficient in sleep propping STG Duration 11/15/21 Speech And Drama Teacher Goal (LTG) Pt does not experience sleep disturbances due to lumbar pain LTG Duration 01/14/22 2 Impairment Thoracic pain w/standing and completing chest-high work Care Home Goal (LTG) Able to complete 30 minutes of chest-high work in standing w /o thoracic pain LTG Duration 01/14/22 1 Impairment Lumbar pain w/lifting items heavier than 15+pounds, sitting for >1 hour, standing Short Term Goal (STG) Pt will be able to demostrate good lifting mechanics w/light weight STG Duration 11/15/21 Care Home Goal (LTG) Pt is able to lift medium weights and thigh-high heavy items without increase in pain LTG Duration 01/14/22 Assessment Summary Assessment Pt arrived at PT w/event of increased pain over weekend due to heavy mattress lifting. Pt also is experiencing increase in family issues which are causing stress. Pt completed supine with mod cueing and was able to repeat ideal form after cueing. Pt found standing exercises very difficult as pt found activating gluts challenging requiring multiple verbal and tactial cues. Pt reported decreased pain after manual therapy. Physical Therapy Plan Frequency and Duration Frequency of Treatment 2x/Week Duration of Treatment 3 months Plan of Care Start Date 10/16/21 Plan of Care End Date 01/14/22 Therapeutic Interventions Therapeutic Interventions Aquatic Therapy,Gait Training, Home Exercise Program,Joint Mobilizations,Manual Therapy, Neuromuscular Re-education, Patient/Caregiver Education, Self-Care/Home Management,Soft Tissue Mobilization,Taping, Therapeutic Activities, Therapeutic Exercises Modalities Electric Stimulation,Hot Packs Next Visit Focus/Plan Next Note Type Treatment Note Next Visit Plan Review HEP. Core training. Lumbar mob. Pelvis mobs. Glut manual therapy w/active ER/IR.
--- NOTE | 2021-10-25 16:03 | PT.OTN ---
Current Diagnoses Other chronic pain (10/25/21) Low back pain, unspecified (10/25/21) Pain in thoracic spine (10/25/21) Physical Therapy Treatment Note PT-OP-A Visit Information Start: 10/10/21 17:47 Freq: Status: Active Protocol: Document 10/25/21 15:30 JG (Rec: 10/25/21 15:49 MARY ALICE [id number]) Out-Patient Physical Therapy Visit Information Visit Information Visit Type Treatment Note Visit Note BASILIO Motta was directly supervised by CARRIE Shin Visit Start Time 13:02 Visit Stop Time 13:44 Total Visit Minutes 42 Visit Number 3 Number of RAILWAY TRACTION LINE WORKER Visits 0 PT-OP-B Current Condition Start: 10/10/21 17:47 Freq: Status: Active Protocol: Document 10/16/21 09:06 JackG (Rec: 10/16/21 09:50 JG [id number]) Current Condition History of Current Condition Onset Date 2004 Current Complaints LB pain w/bilat radiating pain down to calfs, thoracic muscle pain History of Current Condition Lumbar injury in 2004 mounting care tires. PT 2004-. L5-S1 fusion in 2005 w/poor results. 2008 L5-S1 surgery redone. Mild-mod improvement. Adapted lifestyle since. 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 Bilat pain in lumbosacral region w/radiating pain down to calfs. Similar side to side. See pt provided paperwork scanned into chart. Prior Treatments and Tests L5-S1 fusion in 2005 after 2004 injury, surgery to redo 2007. spinal block 2020 w/no relief. PT, medication, specialists. X-ray and MRI imaging 08/07 w/no evidence of injury or significant defect that required surgery. Imaging does show multilevel degenerative disease, multiple mild multilevel facet arthropathy, L2-L3 and L4-L5 disc annulus fissures. See pt provided paperwork scanned into chart. Future Testing and Treatments Planned None planned currently Treatment Goals Patient/Caregiver Goals exercises and stretches to improve thoracic and lumbar spine posture and pain PT-OP-C Subjective Start: 10/10/21 17:47 Freq: Status: Active Protocol: Document 10/25/21 15:30 JG (Rec: 10/25/21 15:49 JackG [id number]) OP-PT Subjective Patient Comments Patient Comments Pt felt significant improvement w/hip flexibility after last session. Pt had pain after yesterday's HEP completion and wants to review exercises. PT-OP-F Manual Assessment Start: 10/10/21 17:47 Freq: Status: Active Protocol: Document 10/23/21 11:55 JG (Rec: 10/23/21 12:14 JG [id number]) Manual Assessments Joint Mobility Assessment Joint Mobility Assessment Scour: negative bilat Sacrum a/p: negative Pelvic compression: negative Pelvic distraction: negative SI joint: limited ER bilat, equal gapping IR bilat PT-OP-J Posture/Palpation/Skin Start: 10/10/21 17:47 Freq: Status: Active Protocol: Document 10/16/21 09:06 JG (Rec: 10/16/21 09:54 JG [id number]) Posture Evaluation Lilibeth Postural Classification System Lumbar Protective Mechanism Left AP 0 Lumbar Protective Mechanism Right AP 0 Lumbar Protective Mechanism Left PA 0 Lumbar Protective Mechanism Right PA 0 Palpation Assessment Location Pelvis Palpation Details Illiac crest appear to be level. ASIS and PSIS appear to be level. PSIS is where pt feels is the margoth of pain PT-OP-K Range of Motion Start: 10/10/21 17:47 Freq: Status: Active Protocol: Document 10/16/21 09:06 JG (Rec: 10/16/21 09:50 JG [id number]) Lumbar Spine Range of Motion Lumbar Spine Active Degrees Flexion 30 Extension 10 Comments w/flex quadrants very limited and shows limited lumbar motion w/flattening of lumbar spine; SB goes into flex and into contralateral rotation and notes contralateral tightness in back Hip Goniometric Range of Motion Hip Right Passive Comments R 82 w/o pelvis movement, 105 with L 93 w/o pelvis movement, 105 with Right Active Flexion w/Knee Flexed 82 Straight Leg Raise 75 Comments 108 flex w/innominate& lumbosacral motion Left Active Flexion w/Knee Flexed 93 Straight Leg Raise 55 Comments 105 flex w/innominate& lumbosacral motion PT-OP-L Special Tests Start: 10/10/21 17:47 Freq: Status: Active Protocol: Document 10/16/21 09:06 JG (Rec: 10/16/21 09:50 JG [id number]) Special Tests Lumbar Spine Special Tests HS Test Results lacking 20 deg to neutral w/90 /90 HS testing L: R lacking 24 deg Straight Leg Raise Test Results positive Comments increased w/DF bilat, not increased w/cervical flex PT-OP-M Strength Start: 10/10/21 17:47 Freq: Status: Active Protocol: Document 10/16/21 09:06 JG (Rec: 10/16/21 09:50 JG [id number]) Hip Strength Hip Manual Muscle Testing Right Flexion (L2) 5 Normal Extension (S1) 4 Good Abduction 3 Fair Adduction 4 Good External Rotation 4 Good Internal Rotation 5 Normal Left Flexion (L2) 5 Normal Extension (S1) 4 Good Abduction 4 Good Adduction 4 Good External Rotation 4 Good Internal Rotation 5 Normal Knee Strength Knee Manual Muscle Testing Right Flexion (S2) 5 Normal Extension (L3) 5 Normal Left Flexion (S2) 5 Normal Extension (L3) 5 Normal Ankle/Foot Strength Ankle and Foot Manual Muscle Testing Right Dorsiflexion (L4) 5 Normal Plantarflexion (S1) 5 Normal Left Dorsiflexion (L4) 5 Normal Plantarflexion (S1) 5 Normal Comments 20 heel raises B PT-OP-Q Treatments Start: 10/10/21 17:47 Freq: Status: Active Protocol: Document 10/25/21 15:30 JG (Rec: 10/25/21 15:49 JG [id number]) Therapeutic Exercises Supine Exercises Piriformis Stretch Supine Exercise Name Cross body to opposite shld Side bilateral Reps/Minutes 4x30 seconds Comments min cues to stay w/i painfree stretching range Lumbar Rotation Side bilateral Reps/Minutes 2x20 Comments pt did better after focusing on LB touching table, pelvic tilt Pelvic Tilts Supine Exercise Name 1. tilts 2. w/marching 3. w/ marching and cross body UE reach Reps/Minutes 1x10 Comments max cueing for core engagement during eccentric march Standing Exercises Hip Abduction Standing Exercise Name 1. standing 2. sidelying Resistance L2, bodyweight Reps/Minutes 1. 1x20 2. 2x10 Comments mild pain and poor form even w /max cueing, changed to sidelying Manual Therapy Treatment Joint Mobilizations Hip Joint R and L hip Direction inferior Grade IV Body Position Supine Comments inferior glide mob w/belt and pt resist hip flex PT-OP-T Assessment and Plan Start: 10/10/21 17:47 Freq: Status: Active Protocol: Document 10/25/21 15:30 MARY ALICE (Rec: 10/25/21 15:49 JG [id number]) Physical Therapy Assessment Goals 4 Impairment Walking up and down hills increases lumbar pain Fdc Goal (LTG) Walking up and down hills does not increase lumbar pain LTG Duration 01/14/22 3 Impairment Sleeping is freq difficult due to lumbar pain Short Term Goal (STG) Pt will be proficient in sleep propping STG Duration 11/15/21 Fdc Goal (LTG) Pt does not experience sleep disturbances due to lumbar pain LTG Duration 01/14/22 2 Impairment Thoracic pain w/standing and completing chest-high work Fdc Goal (LTG) Able to complete 30 minutes of chest-high work in standing w /o thoracic pain LTG Duration 01/14/22 1 Impairment Lumbar pain w/lifting items heavier than 15+pounds, sitting for >1 hour, standing Short Term Goal (STG) Pt will be able to demostrate good lifting mechanics w/light weight STG Duration 11/15/21 Fdc Goal (LTG) Pt is able to lift medium weights and thigh-high heavy items without increase in pain LTG Duration 01/14/22 Assessment Summary Assessment Pt arrived at session reported significant relief after Friday's session, but reported that after yesterday' s HEP he had bilat low back pain. Upon review of standing hip abd, exercise was adjusted to sidelying which promoted form and elimated LB irritation. After several different tactile and verbal cues, pt expressed finally getting it! as he felt his trunk stabilizers engage. After manual therapy, the hip flexion range w/o early pelvic and lumbar involvement was improved. Physical Therapy Plan Frequency and Duration Frequency of Treatment 2x/Week Duration of Treatment 3 months Plan of Care Start Date 10/16/21 Plan of Care End Date 01/14/22 Next Visit Focus/Plan Next Note Type Treatment Note Next Visit Plan Review HEP. Core training continued w/UE involvement. Lumbar and pelvis mobs.
--- NOTE | 2021-10-29 12:16 | PT.OTN ---
Current Diagnoses Other chronic pain (10/29/21) Low back pain, unspecified (10/29/21) Pain in thoracic spine (10/29/21) Physical Therapy Treatment Note PT-OP-A Visit Information Start: 10/10/21 17:47 Freq: Status: Active Protocol: Document 10/29/21 09:23 MA (Rec: 10/29/21 10:33 MA [id number]) Out-Patient Physical Therapy Visit Information Visit Information Visit Type Treatment Note Visit Start Time 09:30 Visit Stop Time 10:10 Total Visit Minutes 40 Visit Number 4 Number of COMPOUND SPECIALIST Visits 1 PT-OP-B Current Condition Start: 10/10/21 17:47 Freq: Status: Active Protocol: Document 10/16/21 09:06 JG (Rec: 10/16/21 09:50 JG [id number]) Current Condition History of Current Condition Onset Date 2004 Current Complaints LB pain w/bilat radiating pain down to calfs, thoracic muscle pain History of Current Condition Lumbar injury in 2004 mounting care tires. PT 2004-. L5-S1 fusion in 2005 w/poor results. 2008 L5-S1 surgery redone. Mild-mod improvement. Adapted lifestyle since. 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 Bilat pain in lumbosacral region w/radiating pain down to calfs. Similar side to side. See pt provided paperwork scanned into chart. Prior Treatments and Tests L5-S1 fusion in 2005 after 2004 injury, surgery to redo 2007. spinal block 2020 w/no relief. PT, medication, specialists. X-ray and MRI imaging 08/07 w/no evidence of injury or significant defect that required surgery. Imaging does show multilevel degenerative disease, multiple mild multilevel facet arthropathy, L2-L3 and L4-L5 disc annulus fissures. See pt provided paperwork scanned into chart. Future Testing and Treatments Planned None planned currently Treatment Goals Patient/Caregiver Goals exercises and stretches to improve thoracic and lumbar spine posture and pain PT-OP-C Subjective Start: 10/10/21 17:47 Freq: Status: Active Protocol: Document 10/29/21 09:23 MA (Rec: 10/29/21 10:33 MA [id number]) OP-PT Subjective Patient Comments Patient Comments Pt requests he would like to understand why he does each exercise. He had his marleny his pain points with a marker on his back. PT-OP-F Manual Assessment Start: 10/10/21 17:47 Freq: Status: Active Protocol: Document 10/23/21 11:55 JG (Rec: 10/23/21 12:14 JG [id number]) Manual Assessments Joint Mobility Assessment Joint Mobility Assessment Scour: negative bilat Sacrum a/p: negative Pelvic compression: negative Pelvic distraction: negative SI joint: limited ER bilat, equal gapping IR bilat PT-OP-J Posture/Palpation/Skin Start: 10/10/21 17:47 Freq: Status: Active Protocol: Document 10/16/21 09:06 JG (Rec: 10/16/21 09:54 JG [id number]) Posture Evaluation Lilibeth Postural Classification System Lumbar Protective Mechanism Left AP 0 Lumbar Protective Mechanism Right AP 0 Lumbar Protective Mechanism Left PA 0 Lumbar Protective Mechanism Right PA 0 Palpation Assessment Location Pelvis Palpation Details Illiac crest appear to be level. ASIS and PSIS appear to be level. PSIS is where pt feels is the margoth of pain PT-OP-K Range of Motion Start: 10/10/21 17:47 Freq: Status: Active Protocol: Document 10/16/21 09:06 JG (Rec: 10/16/21 09:50 JG [id number]) Lumbar Spine Range of Motion Lumbar Spine Active Degrees Flexion 30 Extension 10 Comments w/flex quadrants very limited and shows limited lumbar motion w/flattening of lumbar spine; SB goes into flex and into contralateral rotation and notes contralateral tightness in back Hip Goniometric Range of Motion Hip Right Passive Comments R 82 w/o pelvis movement, 105 with L 93 w/o pelvis movement, 105 with Right Active Flexion w/Knee Flexed 82 Straight Leg Raise 75 Comments 108 flex w/innominate& lumbosacral motion Left Active Flexion w/Knee Flexed 93 Straight Leg Raise 55 Comments 105 flex w/innominate& lumbosacral motion PT-OP-L Special Tests Start: 10/10/21 17:47 Freq: Status: Active Protocol: Document 10/16/21 09:06 JG (Rec: 10/16/21 09:50 JG [id number]) Special Tests Lumbar Spine Special Tests HS Test Results lacking 20 deg to neutral w/90 /90 HS testing L: R lacking 24 deg Straight Leg Raise Test Results positive Comments increased w/DF bilat, not increased w/cervical flex PT-OP-M Strength Start: 10/10/21 17:47 Freq: Status: Active Protocol: Document 10/16/21 09:06 JG (Rec: 10/16/21 09:50 JG [id number]) Hip Strength Hip Manual Muscle Testing Right Flexion (L2) 5 Normal Extension (S1) 4 Good Abduction 3 Fair Adduction 4 Good External Rotation 4 Good Internal Rotation 5 Normal Left Flexion (L2) 5 Normal Extension (S1) 4 Good Abduction 4 Good Adduction 4 Good External Rotation 4 Good Internal Rotation 5 Normal Knee Strength Knee Manual Muscle Testing Right Flexion (S2) 5 Normal Extension (L3) 5 Normal Left Flexion (S2) 5 Normal Extension (L3) 5 Normal Ankle/Foot Strength Ankle and Foot Manual Muscle Testing Right Dorsiflexion (L4) 5 Normal Plantarflexion (S1) 5 Normal Left Dorsiflexion (L4) 5 Normal Plantarflexion (S1) 5 Normal Comments 20 heel raises B PT-OP-Q Treatments Start: 10/10/21 17:47 Freq: Status: Active Protocol: Document 10/29/21 09:23 MA (Rec: 10/29/21 10:33 MA [id number]) Therapeutic Exercises Supine Exercises Stretch Supine Exercise Name HS stretch Side bilateral Equipment Used belt Reps/Minutes 2' ea Comments with STM to R HS Piriformis Stretch Supine Exercise Name Cross body to opposite shld Side bilateral Reps/Minutes 4x30 seconds Comments with STM to glute med Lumbar Rotation Side bilateral Reps/Minutes 2x20 Comments pt did better after focusing on LB touching table, pelvic tilt Pelvic Tilts Supine Exercise Name 1. tilts 2. w/marching 3. w/ marching and cross body UE reach Reps/Minutes 1x10 Comments max cueing for core engagement during eccentric march Other Exercises Self-STM Other Exercise Name LB, Glutes Side right Equipment Used rubber ball Reps/Minutes 2' Comments added to HEP Manual Therapy Treatment Soft Tissue Mobilization Iliac Crest Body Location Scour R-QL Intensity/Depth Moderate Body Position Prone Gluts Mobilization Type Sustained Pressure Intensity/Depth Moderate Body Position Prone Comments w/active ER/IR Manual Traction RLE Details IR of RLE with traction for decreasing LBP Body Position Supine Reps/Duration 1' Self-Care/Home Management Treatment Education Other Education Discussed mms that may cause back pain, why we perform exercises chosen for HEP, what mms work during exercises, SI joint pain; added to HEP self -STM with ball against wall to glutes and LB musculature PT-OP-T Assessment and Plan Start: 10/10/21 17:47 Freq: Status: Active Protocol: Document 10/29/21 09:23 MA (Rec: 10/29/21 10:33 MA [id number]) Physical Therapy Assessment Goals 4 Impairment Walking up and down hills increases lumbar pain Collet Making Machine Operator Goal (LTG) Walking up and down hills does not increase lumbar pain LTG Duration 01/14/22 3 Impairment Sleeping is freq difficult due to lumbar pain Short Term Goal (STG) Pt will be proficient in sleep propping STG Duration 11/15/21 Collet Making Machine Operator Goal (LTG) Pt does not experience sleep disturbances due to lumbar pain LTG Duration 01/14/22 2 Impairment Thoracic pain w/standing and completing chest-high work Collet Making Machine Operator Goal (LTG) Able to complete 30 minutes of chest-high work in standing w /o thoracic pain LTG Duration 01/14/22 1 Impairment Lumbar pain w/lifting items heavier than 15+pounds, sitting for >1 hour, standing Short Term Goal (STG) Pt will be able to demostrate good lifting mechanics w/light weight STG Duration 11/15/21 Collet Making Machine Operator Goal (LTG) Pt is able to lift medium weights and thigh-high heavy items without increase in pain LTG Duration 01/14/22 Assessment Summary Assessment Pt arrived with a list of questions this session, requested learning more about why he performs each exercise, and had his marleny with marker on his back where he feels pain. Limon are on the SI joint bilaterally. Educated pt on musculature throughout exercises and discussed why each exercise is good for decreasing LBP. Pt fatigues during lumbar rotation exercise and loses core contraction causing him to feel R LBP. Educated pt on performing less reps to avoid poor form when fatigued. Added in HS stretch and self-STM with ball against wall to glutes and QL along iliac crest. At end of session, pt states, this is the best PT session I have ever had. Physical Therapy Plan Frequency and Duration Frequency of Treatment 2x/Week Duration of Treatment 3 months Plan of Care Start Date 10/16/21 Plan of Care End Date 01/14/22 Therapeutic Interventions Therapeutic Interventions Aquatic Therapy,Gait Training, Home Exercise Program,Joint Mobilizations,Manual Therapy, Neuromuscular Re-education, Patient/Caregiver Education, Self-Care/Home Management,Soft Tissue Mobilization,Taping, Therapeutic Activities, Therapeutic Exercises Modalities Electric Stimulation,Hot Packs Next Visit Focus/Plan Next Note Type Treatment Note Next Visit Plan Continue educating pt throughout exercises on mms and how exercises relate to back pain. Review HEP. Core training continued w/UE involvement. Lumbar and pelvis mobs.
--- NOTE | 2021-11-01 17:52 | PT.OTN ---
Current Diagnoses Other chronic pain (11/01/21) Low back pain, unspecified (11/01/21) Pain in thoracic spine (11/01/21) Physical Therapy Treatment Note PT-OP-A Visit Information Start: 10/10/21 17:47 Freq: Status: Active Protocol: Document 11/01/21 14:15 MARY ALICE (Rec: 11/01/21 13:04 MARY ALICE [id number]) Out-Patient Physical Therapy Visit Information Visit Information Visit Type Treatment Note Visit Note BASILIO Motta was directly supervised by CARRIE Shin Visit Start Time 14:18 Visit Stop Time 15:05 Total Visit Minutes 47 Visit Number 5 Number of SURGICAL ELASTIC KNITTER Visits 0 PT-OP-B Current Condition Start: 10/10/21 17:47 Freq: Status: Active Protocol: Document 10/16/21 09:06 MARY ALICE (Rec: 10/16/21 09:50 MARY ALICE [id number]) Current Condition History of Current Condition Onset Date 2004 Current Complaints LB pain w/bilat radiating pain down to calfs, thoracic muscle pain History of Current Condition Lumbar injury in 2004 mounting care tires. PT 2004-. L5-S1 fusion in 2005 w/poor results. 2008 L5-S1 surgery redone. Mild-mod improvement. Adapted lifestyle since. 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 Bilat pain in lumbosacral region w/radiating pain down to calfs. Similar side to side. See pt provided paperwork scanned into chart. Prior Treatments and Tests L5-S1 fusion in 2005 after 2004 injury, surgery to redo 2007. spinal block 2020 w/no relief. PT, medication, specialists. X-ray and MRI imaging 08/07 w/no evidence of injury or significant defect that required surgery. Imaging does show multilevel degenerative disease, multiple mild multilevel facet arthropathy, L2-L3 and L4-L5 disc annulus fissures. See pt provided paperwork scanned into chart. Future Testing and Treatments Planned None planned currently Treatment Goals Patient/Caregiver Goals exercises and stretches to improve thoracic and lumbar spine posture and pain PT-OP-C Subjective Start: 10/10/21 17:47 Freq: Status: Active Protocol: Document 11/01/21 14:15 MARY ALICE (Rec: 11/01/21 13:04 MARY ALICE [id number]) OP-PT Subjective Patient Comments Patient Comments Pt reports that he deeply appreciates Aleax's education about his therapeutic exercise selection as he needs to understand how the exercises help his symptoms. Pt reports traction to R LE felt too intense last session, he had previous experience w/ well-known PT who treated pt w/same traction . PT-OP-F Manual Assessment Start: 10/10/21 17:47 Freq: Status: Active Protocol: Document 10/23/21 11:55 JG (Rec: 10/23/21 12:14 JG [id number]) Manual Assessments Joint Mobility Assessment Joint Mobility Assessment Scour: negative bilat Sacrum a/p: negative Pelvic compression: negative Pelvic distraction: negative SI joint: limited ER bilat, equal gapping IR bilat PT-OP-J Posture/Palpation/Skin Start: 10/10/21 17:47 Freq: Status: Active Protocol: Document 10/16/21 09:06 JG (Rec: 10/16/21 09:54 JG [id number]) Posture Evaluation Lilibeth Postural Classification System Lumbar Protective Mechanism Left AP 0 Lumbar Protective Mechanism Right AP 0 Lumbar Protective Mechanism Left PA 0 Lumbar Protective Mechanism Right PA 0 Palpation Assessment Location Pelvis Palpation Details Illiac crest appear to be level. ASIS and PSIS appear to be level. PSIS is where pt feels is the margoth of pain PT-OP-K Range of Motion Start: 10/10/21 17:47 Freq: Status: Active Protocol: Document 10/16/21 09:06 JG (Rec: 10/16/21 09:50 JG [id number]) Lumbar Spine Range of Motion Lumbar Spine Active Degrees Flexion 30 Extension 10 Comments w/flex quadrants very limited and shows limited lumbar motion w/flattening of lumbar spine; SB goes into flex and into contralateral rotation and notes contralateral tightness in back Hip Goniometric Range of Motion Hip Right Passive Comments R 82 w/o pelvis movement, 105 with L 93 w/o pelvis movement, 105 with Right Active Flexion w/Knee Flexed 82 Straight Leg Raise 75 Comments 108 flex w/innominate& lumbosacral motion Left Active Flexion w/Knee Flexed 93 Straight Leg Raise 55 Comments 105 flex w/innominate& lumbosacral motion PT-OP-L Special Tests Start: 10/10/21 17:47 Freq: Status: Active Protocol: Document 10/16/21 09:06 JG (Rec: 10/16/21 09:50 J [id number]) Special Tests Lumbar Spine Special Tests HS Test Results lacking 20 deg to neutral w/90 /90 HS testing L: R lacking 24 deg Straight Leg Raise Test Results positive Comments increased w/DF bilat, not increased w/cervical flex PT-OP-M Strength Start: 10/10/21 17:47 Freq: Status: Active Protocol: Document 10/16/21 09:06 JG (Rec: 10/16/21 09:50 J [id number]) Hip Strength Hip Manual Muscle Testing Right Flexion (L2) 5 Normal Extension (S1) 4 Good Abduction 3 Fair Adduction 4 Good External Rotation 4 Good Internal Rotation 5 Normal Left Flexion (L2) 5 Normal Extension (S1) 4 Good Abduction 4 Good Adduction 4 Good External Rotation 4 Good Internal Rotation 5 Normal Knee Strength Knee Manual Muscle Testing Right Flexion (S2) 5 Normal Extension (L3) 5 Normal Left Flexion (S2) 5 Normal Extension (L3) 5 Normal Ankle/Foot Strength Ankle and Foot Manual Muscle Testing Right Dorsiflexion (L4) 5 Normal Plantarflexion (S1) 5 Normal Left Dorsiflexion (L4) 5 Normal Plantarflexion (S1) 5 Normal Comments 20 heel raises B PT-OP-Q Treatments Start: 10/10/21 17:47 Freq: Status: Active Protocol: Document 11/01/21 14:15 JG (Rec: 11/01/21 13:04 JG [id number]) Therapeutic Exercises Supine Exercises Bridge Supine Exercise Name 1/2 ROM bridge w/blue playground ball btw knees Side bilateral Equipment Used blue playground ball Reps/Minutes 2x10 Comments max cue for adductor squeeze, pelvic tilt, 1/2 ROM Sidelying Exercises Hip Abduction Side bilateral Reps/Minutes 2x10 Comments mod cue for moving LE to not be flexed, but midline w/body Open book Side bilateral Reps/Minutes 2x10 Comments max cue for ROM, hips stacked, rot through t-spine Other Exercises Quad Other Exercise Name Cat<>neutral Side bilateral Reps/Minutes 1x12 Comments max cue for neutral spine: pelvic tilt, head placement. Avoid excess tspine Foam Roller Other Exercise Name t-spine ext mob, small range Side bilateral Equipment Used half blue foam roller Reps/Minutes 3 levels x 8 Comments max cues to support head w/ hands for chin tuck, avoid lumbar ext, core use Manual Therapy Treatment Soft Tissue Mobilization Gluts Body Location R and L gluts along sacral border Mobilization Type Sustained Pressure Intensity/Depth Moderate Body Position Prone Comments w/active ER/IR Joint Mobilizations Hip Joint R and L hip Grade IV Body Position Prone Comments on axis ER FM w/manual facilitation PT-OP-T Assessment and Plan Start: 10/10/21 17:47 Freq: Status: Active Protocol: Document 11/01/21 14:15 JG (Rec: 11/01/21 13:04 JG [id number]) Physical Therapy Assessment Goals 4 Impairment Walking up and down hills increases lumbar pain Alf Goal (LTG) Walking up and down hills does not increase lumbar pain LTG Duration 01/14/22 3 Impairment Sleeping is freq difficult due to lumbar pain Short Term Goal (STG) Pt will be proficient in sleep propping STG Duration 11/15/21 Salon Receptionist Goal (LTG) Pt does not experience sleep disturbances due to lumbar pain LTG Duration 01/14/22 2 Impairment Thoracic pain w/standing and completing chest-high work Salon Receptionist Goal (LTG) Able to complete 30 minutes of chest-high work in standing w /o thoracic pain LTG Duration 01/14/22 1 Impairment Lumbar pain w/lifting items heavier than 15+pounds, sitting for >1 hour, standing Short Term Goal (STG) Pt will be able to demostrate good lifting mechanics w/light weight STG Duration 11/15/21 Salon Receptionist Goal (LTG) Pt is able to lift medium weights and thigh-high heavy items without increase in pain LTG Duration 01/14/22 Assessment Summary Assessment Pt was very involved in ther ex education during today's session and demostrated understanding of thought process behind new exercises. Pt req mod to max cueing for spinal and postural position during ther ex, but was able to attain form at end of sets. Pt expressed gratitude for pt education. Increased hip ER was attained after joint and soft tissue mob which also decrease tissue tension felt by pt. Physical Therapy Plan Frequency and Duration Frequency of Treatment 2x/Week Duration of Treatment 3 months Plan of Care Start Date 10/16/21 Plan of Care End Date 01/14/22 Next Visit Focus/Plan Next Note Type Treatment Note Next Visit Plan pt education regarding connection btw exercises, purpose, and his symptoms. Core training w/UE involvement . Lumbar and thoracic spine AROM. Lumbar and pelvis mobs.
--- NOTE | 2021-11-05 17:01 | PT.OTN ---
Current Diagnoses Other chronic pain (11/05/21) Low back pain, unspecified (11/05/21) Pain in thoracic spine (11/05/21) Physical Therapy Treatment Note PT-OP-A Visit Information Start: 10/10/21 17:47 Freq: Status: Active Protocol: Document 11/05/21 15:18 [facility] (Rec: 11/05/21 17:01 [facility] [id number]) Out-Patient Physical Therapy Visit Information Visit Information Visit Type Treatment Note Visit Note 04/26 Visit Start Time 15:18 Visit Stop Time 16:00 Total Visit Minutes 42 Visit Number 6 Number of OTHER SPORTS COACH OR INSTRUCTOR Visits 0 PT-OP-B Current Condition Start: 10/10/21 17:47 Freq: Status: Active Protocol: Document 10/16/21 09:06 JG (Rec: 10/16/21 09:50 JG [id number]) Current Condition History of Current Condition Onset Date 2004 Current Complaints LB pain w/bilat radiating pain down to calfs, thoracic muscle pain History of Current Condition Lumbar injury in 2004 mounting care tires. PT 2004-. L5-S1 fusion in 2005 w/poor results. 2008 L5-S1 surgery redone. Mild-mod improvement. Adapted lifestyle since. 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 Bilat pain in lumbosacral region w/radiating pain down to calfs. Similar side to side. See pt provided paperwork scanned into chart. Prior Treatments and Tests L5-S1 fusion in 2005 after 2004 injury, surgery to redo 2007. spinal block 2020 w/no relief. PT, medication, specialists. X-ray and MRI imaging 08/07 w/no evidence of injury or significant defect that required surgery. Imaging does show multilevel degenerative disease, multiple mild multilevel facet arthropathy, L2-L3 and L4-L5 disc annulus fissures. See pt provided paperwork scanned into chart. Future Testing and Treatments Planned None planned currently Treatment Goals Patient/Caregiver Goals exercises and stretches to improve thoracic and lumbar spine posture and pain PT-OP-C Subjective Start: 10/10/21 17:47 Freq: Status: Active Protocol: Document 11/05/21 15:18 [facility] (Rec: 11/05/21 17:01 [facility] [id number]) OP-PT Subjective Patient Comments Patient Comments Pt reports tried to do every sinlge exercise with the prescribed reps and had LBP w/ radation. Pain started about 1 -2 hours later. PT-OP-F Manual Assessment Start: 10/10/21 17:47 Freq: Status: Active Protocol: Document 10/23/21 11:55 JG (Rec: 10/23/21 12:14 JG [id number]) Manual Assessments Joint Mobility Assessment Joint Mobility Assessment Scour: negative bilat Sacrum a/p: negative Pelvic compression: negative Pelvic distraction: negative SI joint: limited ER bilat, equal gapping IR bilat PT-OP-J Posture/Palpation/Skin Start: 10/10/21 17:47 Freq: Status: Active Protocol: Document 10/16/21 09:06 JG (Rec: 10/16/21 09:54 JG [id number]) Posture Evaluation Lilibeth Postural Classification System Lumbar Protective Mechanism Left AP 0 Lumbar Protective Mechanism Right AP 0 Lumbar Protective Mechanism Left PA 0 Lumbar Protective Mechanism Right PA 0 Palpation Assessment Location Pelvis Palpation Details Illiac crest appear to be level. ASIS and PSIS appear to be level. PSIS is where pt feels is the margoth of pain PT-OP-K Range of Motion Start: 10/10/21 17:47 Freq: Status: Active Protocol: Document 10/16/21 09:06 JG (Rec: 10/16/21 09:50 JG [id number]) Lumbar Spine Range of Motion Lumbar Spine Active Degrees Flexion 30 Extension 10 Comments w/flex quadrants very limited and shows limited lumbar motion w/flattening of lumbar spine; SB goes into flex and into contralateral rotation and notes contralateral tightness in back Hip Goniometric Range of Motion Hip Right Passive Comments R 82 w/o pelvis movement, 105 with L 93 w/o pelvis movement, 105 with Right Active Flexion w/Knee Flexed 82 Straight Leg Raise 75 Comments 108 flex w/innominate& lumbosacral motion Left Active Flexion w/Knee Flexed 93 Straight Leg Raise 55 Comments 105 flex w/innominate& lumbosacral motion PT-OP-L Special Tests Start: 10/10/21 17:47 Freq: Status: Active Protocol: Document 10/16/21 09:06 JG (Rec: 10/16/21 09:50 JG [id number]) Special Tests Lumbar Spine Special Tests HS Test Results lacking 20 deg to neutral w/90 /90 HS testing L: R lacking 24 deg Straight Leg Raise Test Results positive Comments increased w/DF bilat, not increased w/cervical flex PT-OP-M Strength Start: 10/10/21 17:47 Freq: Status: Active Protocol: Document 10/16/21 09:06 JG (Rec: 10/16/21 09:50 JG [id number]) Hip Strength Hip Manual Muscle Testing Right Flexion (L2) 5 Normal Extension (S1) 4 Good Abduction 3 Fair Adduction 4 Good External Rotation 4 Good Internal Rotation 5 Normal Left Flexion (L2) 5 Normal Extension (S1) 4 Good Abduction 4 Good Adduction 4 Good External Rotation 4 Good Internal Rotation 5 Normal Knee Strength Knee Manual Muscle Testing Right Flexion (S2) 5 Normal Extension (L3) 5 Normal Left Flexion (S2) 5 Normal Extension (L3) 5 Normal Ankle/Foot Strength Ankle and Foot Manual Muscle Testing Right Dorsiflexion (L4) 5 Normal Plantarflexion (S1) 5 Normal Left Dorsiflexion (L4) 5 Normal Plantarflexion (S1) 5 Normal Comments 20 heel raises B PT-OP-Q Treatments Start: 10/10/21 17:47 Freq: Status: Active Protocol: Document 11/05/21 15:18 [facility] (Rec: 11/05/21 17:01 [facility] [id number]) Therapeutic Exercises Supine Exercises Lumbar Rotation Side bilateral Reps/Minutes 10 Comments small range forcus on segmental push down Sidelying Exercises Hip Abduction Side bilateral Reps/Minutes 12 Comments cues for leg position w/lift not going to flex & opp knee up to chest Open book Side bilateral Reps/Minutes 10 Comments max cue for ROM, hips stacked, rot through t-spine Standing Exercises Squats Standing Exercise Name squat by bar Side bilateral Reps/Minutes 2x12 Comments cues for not holding bar Other Exercises Foam Roller Other Exercise Name t-spine ext mob, small range Side bilateral Equipment Used foam roll & 1/2 foam roll Reps/Minutes at base of scap and mid scap w /gentle ext over Comments max cues to support head w/ hands for chin tuck, avoid lumbar ext, core use Manual Therapy Treatment Soft Tissue Mobilization lumbar Body Location scar & paraspinals LS Mobilization Type Myofascial Release Intensity/Depth Superficial Self-Care/Home Management Treatment Education Patient Education Home Exercise Program Other Education discussed trying 1 paper of exercises 1 day and the other the next to weed out any exercsies that may be causing pain. Discussed stopping exercise immediately if he feels anything in his back w/ them as they are not meant to be felt in the back. Edu of normal tspine motion. PT-OP-T Assessment and Plan Start: 10/10/21 17:47 Freq: Status: Active Protocol: Document 11/05/21 15:18 [facility] (Rec: 11/05/21 17:01 [facility] [id number]) Physical Therapy Assessment Goals 4 Impairment Walking up and down hills increases lumbar pain Halfway Goal (LTG) Walking up and down hills does not increase lumbar pain LTG Duration 01/14/22 3 Impairment Sleeping is freq difficult due to lumbar pain Short Term Goal (STG) Pt will be proficient in sleep propping STG Duration 11/15/21 Qc Chemist Goal (LTG) Pt does not experience sleep disturbances due to lumbar pain LTG Duration 01/14/22 2 Impairment Thoracic pain w/standing and completing chest-high work Halfway Goal (LTG) Able to complete 30 minutes of chest-high work in standing w /o thoracic pain LTG Duration 01/14/22 1 Impairment Lumbar pain w/lifting items heavier than 15+pounds, sitting for >1 hour, standing Short Term Goal (STG) Pt will be able to demostrate good lifting mechanics w/light weight STG Duration 11/15/21 Qc Chemist Goal (LTG) Pt is able to lift medium weights and thigh-high heavy items without increase in pain LTG Duration 01/14/22 Assessment Summary Assessment Pt felt better re: exercises after signficiant time spent discussing exercises and reviewing his performance. He required cues w/all exercises to avoid lumbar pain today. Physical Therapy Plan Frequency and Duration Frequency of Treatment 2x/Week Duration of Treatment 3 months Plan of Care Start Date 10/16/21 Plan of Care End Date 01/14/22 Next Visit Focus/Plan Next Note Type Treatment Note Next Visit Plan review exercsies again for form and return to working on hip, lumbar & sacral mobility
--- NOTE | 2021-11-21 14:37 | PT.OTN ---
Current Diagnoses Other chronic pain (11/21/21) Low back pain, unspecified (11/21/21) Pain in thoracic spine (11/21/21) Physical Therapy Treatment Note PT-OP-A Visit Information Start: 10/10/21 17:47 Freq: Status: Active Protocol: Document 11/21/21 13:48 [facility] (Rec: 11/21/21 14:36 [facility] [id number]) Out-Patient Physical Therapy Visit Information Visit Information Visit Type Treatment Note Visit Note 05/26 Visit Start Time 13:49 Visit Stop Time 14:29 Total Visit Minutes 40 Visit Number 7 Number of AGRICULTURAL CHEMIST Visits 0 PT-OP-B Current Condition Start: 10/10/21 17:47 Freq: Status: Active Protocol: Document 10/16/21 09:06 JG (Rec: 10/16/21 09:50 JG [id number]) Current Condition History of Current Condition Onset Date 2004 Current Complaints LB pain w/bilat radiating pain down to calfs, thoracic muscle pain History of Current Condition Lumbar injury in 2004 mounting care tires. PT 2004-. L5-S1 fusion in 2005 w/poor results. 2008 L5-S1 surgery redone. Mild-mod improvement. Adapted lifestyle since. 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 Bilat pain in lumbosacral region w/radiating pain down to calfs. Similar side to side. See pt provided paperwork scanned into chart. Prior Treatments and Tests L5-S1 fusion in 2005 after 2004 injury, surgery to redo 2007. spinal block 2020 w/no relief. PT, medication, specialists. X-ray and MRI imaging 08/07 w/no evidence of injury or significant defect that required surgery. Imaging does show multilevel degenerative disease, multiple mild multilevel facet arthropathy, L2-L3 and L4-L5 disc annulus fissures. See pt provided paperwork scanned into chart. Future Testing and Treatments Planned None planned currently Treatment Goals Patient/Caregiver Goals exercises and stretches to improve thoracic and lumbar spine posture and pain PT-OP-C Subjective Start: 10/10/21 17:47 Freq: Status: Active Protocol: Document 11/21/21 13:48 [facility] (Rec: 11/21/21 14:36 [facility] [id number]) OP-PT Subjective Patient Comments Patient Comments Pt reports he has had family stress w/mom falling so has spenta lot of time in ER. Notes he still has some issues with a couple exercises. Hehas to lift mom into car which tweaks hime some along w /driveway shovelling. PT-OP-F Manual Assessment Start: 10/10/21 17:47 Freq: Status: Active Protocol: Document 10/23/21 11:55 JG (Rec: 10/23/21 12:14 JG [id number]) Manual Assessments Joint Mobility Assessment Joint Mobility Assessment Scour: negative bilat Sacrum a/p: negative Pelvic compression: negative Pelvic distraction: negative SI joint: limited ER bilat, equal gapping IR bilat PT-OP-J Posture/Palpation/Skin Start: 10/10/21 17:47 Freq: Status: Active Protocol: Document 10/16/21 09:06 JG (Rec: 10/16/21 09:54 JG [id number]) Posture Evaluation Lilibeth Postural Classification System Lumbar Protective Mechanism Left AP 0 Lumbar Protective Mechanism Right AP 0 Lumbar Protective Mechanism Left PA 0 Lumbar Protective Mechanism Right PA 0 Palpation Assessment Location Pelvis Palpation Details Illiac crest appear to be level. ASIS and PSIS appear to be level. PSIS is where pt feels is the margoth of pain PT-OP-K Range of Motion Start: 10/10/21 17:47 Freq: Status: Active Protocol: Document 10/16/21 09:06 JG (Rec: 10/16/21 09:50 JG [id number]) Lumbar Spine Range of Motion Lumbar Spine Active Degrees Flexion 30 Extension 10 Comments w/flex quadrants very limited and shows limited lumbar motion w/flattening of lumbar spine; SB goes into flex and into contralateral rotation and notes contralateral tightness in back Hip Goniometric Range of Motion Hip Right Passive Comments R 82 w/o pelvis movement, 105 with L 93 w/o pelvis movement, 105 with Right Active Flexion w/Knee Flexed 82 Straight Leg Raise 75 Comments 108 flex w/innominate& lumbosacral motion Left Active Flexion w/Knee Flexed 93 Straight Leg Raise 55 Comments 105 flex w/innominate& lumbosacral motion PT-OP-L Special Tests Start: 10/10/21 17:47 Freq: Status: Active Protocol: Document 10/16/21 09:06 JG (Rec: 10/16/21 09:50 JG [id number]) Special Tests Lumbar Spine Special Tests HS Test Results lacking 20 deg to neutral w/90 /90 HS testing L: R lacking 24 deg Straight Leg Raise Test Results positive Comments increased w/DF bilat, not increased w/cervical flex PT-OP-M Strength Start: 10/10/21 17:47 Freq: Status: Active Protocol: Document 10/16/21 09:06 JG (Rec: 10/16/21 09:50 JG [id number]) Hip Strength Hip Manual Muscle Testing Right Flexion (L2) 5 Normal Extension (S1) 4 Good Abduction 3 Fair Adduction 4 Good External Rotation 4 Good Internal Rotation 5 Normal Left Flexion (L2) 5 Normal Extension (S1) 4 Good Abduction 4 Good Adduction 4 Good External Rotation 4 Good Internal Rotation 5 Normal Knee Strength Knee Manual Muscle Testing Right Flexion (S2) 5 Normal Extension (L3) 5 Normal Left Flexion (S2) 5 Normal Extension (L3) 5 Normal Ankle/Foot Strength Ankle and Foot Manual Muscle Testing Right Dorsiflexion (L4) 5 Normal Plantarflexion (S1) 5 Normal Left Dorsiflexion (L4) 5 Normal Plantarflexion (S1) 5 Normal Comments 20 heel raises B PT-OP-Q Treatments Start: 10/10/21 17:47 Freq: Status: Active Protocol: Document 11/21/21 13:48 [facility] (Rec: 11/21/21 14:36 [facility] [id number]) Therapeutic Exercises Sidelying Exercises Hip Abduction Side left Reps/Minutes 3 Comments cues for leg position w/lift not going to flex & opp knee up to chest Standing Exercises side step Standing Exercise Name for multifidi Side bilateral Equipment Used L1 band 2 strands Reps/Minutes 10x ea Squats Standing Exercise Name squat Side bilateral Reps/Minutes 7 Comments cues for glutes Other Exercises Foam Roller Other Exercise Name t-spine ext mob, small range Side bilateral Equipment Used foam roll Reps/Minutes at base of scap and mid scap w /gentle ext over Comments max cues to support head w/ hands for chin tuck, avoid lumbar ext, core use Manual Therapy Treatment Soft Tissue Mobilization lumbar Body Location R paraspinals & QL Mobilization Type Rolling,Strumming Intensity/Depth Moderate Comments w/ant elevation/post dep Gluts Body Location R gluts along sacral border Mobilization Type Sustained Pressure Intensity/Depth Moderate Body Position Prone Comments w/active assitive ER/IR Joint Mobilizations Hip Joint R Direction on axis FM ER Self-Care/Home Management Treatment Education Patient Education Home Exercise Program Other Education verbal review exercises w/ discussion of problems; discussed and adjusted pt position in a couple w/o doing reps and pt noted more comfort w/starting postion ( kne to wards chest w/s/l abd & B knee to chest w/oepn book) PT-OP-T Assessment and Plan Start: 10/10/21 17:47 Freq: Status: Active Protocol: Document 11/21/21 13:48 [facility] (Rec: 11/21/21 14:36 [facility] [id number]) Physical Therapy Assessment Goals 4 Impairment Walking up and down hills increases lumbar pain Penitentiary Goal (LTG) Walking up and down hills does not increase lumbar pain LTG Duration 01/14/22 3 Impairment Sleeping is freq difficult due to lumbar pain Short Term Goal (STG) Pt will be proficient in sleep propping STG Duration 11/15/21 Survey Superintendent Goal (LTG) Pt does not experience sleep disturbances due to lumbar pain LTG Duration 01/14/22 2 Impairment Thoracic pain w/standing and completing chest-high work Survey Superintendent Goal (LTG) Able to complete 30 minutes of chest-high work in standing w /o thoracic pain LTG Duration 01/14/22 1 Impairment Lumbar pain w/lifting items heavier than 15+pounds, sitting for >1 hour, standing Short Term Goal (STG) Pt will be able to demostrate good lifting mechanics w/light weight STG Duration 11/15/21 Penitentiary Goal (LTG) Pt is able to lift medium weights and thigh-high heavy items without increase in pain LTG Duration 01/14/22 Assessment Summary Assessment Improved hip ER after manual treatemnt and pt reproting more comfortbale hip mobility. He had better form w/ exercises w/less questionsa nd adjustments requried. stop LTR d/t pain for pt and add side step for multifidi Physical Therapy Plan Frequency and Duration Frequency of Treatment 2x/Week Duration of Treatment 3 months Plan of Care Start Date 10/16/21 Plan of Care End Date 01/14/22 Next Visit Focus/Plan Next Note Type Treatment Note Next Visit Plan review exercsies again for form and return to working on hip, lumbar & sacral mobility
--- NOTE | 2022-02-11 08:11 | PT.OPDS ---
Current Diagnoses Other chronic pain (11/21/21) Low back pain, unspecified (11/21/21) Pain in thoracic spine (11/21/21) Visit Care Team Role Provider Type Cameron Johnson MD Attending Provider Physician Family Provider Primary Care Provider Referring Provider Specialty: Internal Medicine Address: [address] [place] [address], [facility] Email: [email or web address] Visit Number Visit Number 7 Discharge Summary PT-OP-B Current Condition Start: 10/10/21 17:47 Freq: Status: Active Protocol: Document 10/16/21 09:06 JG (Rec: 10/16/21 09:50 J [id number]) Current Condition History of Current Condition Onset Date 2004 Current Complaints LB pain w/bilat radiating pain down to calfs, thoracic muscle pain History of Current Condition Lumbar injury in 2004 mounting care tires. PT 2004-. L5-S1 fusion in 2005 w/poor results. 2008 L5-S1 surgery redone. Mild-mod improvement. Adapted lifestyle since. 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 Bilat pain in lumbosacral region w/radiating pain down to calfs. Similar side to side. See pt provided paperwork scanned into chart. Prior Treatments and Tests L5-S1 fusion in 2005 after 2005 injury, surgery to redo 2007. spinal block 2020 w/no relief. PT, medication, specialists. X-ray and MRI imaging 08/07 w/no evidence of injury or significant defect that required surgery. Imaging does show multilevel degenerative disease, multiple mild multilevel facet arthropathy, L2-L3 and L4-L5 disc annulus fissures. See pt provided paperwork scanned into chart. Future Testing and Treatments Planned None planned currently Treatment Goals Patient/Caregiver Goals exercises and stretches to improve thoracic and lumbar spine posture and pain PT-OP-C Subjective Start: 10/10/21 17:47 Freq: Status: Active Protocol: Document 11/21/21 13:48 [facility] (Rec: 11/21/21 14:36 [facility] [id number]) OP-PT Subjective Patient Comments Patient Comments Pt reports he has had family stress w/mom falling so has spenta lot of time in ER. Notes he still has some issues with a couple exercises. Hehas to lift mom into car which tweaks hime some along w /driveway shovelling. PT-OP-F Manual Assessment Start: 10/10/21 17:47 Freq: Status: Active Protocol: Document 10/23/21 11:55 JG (Rec: 10/23/21 12:14 JG [id number]) Manual Assessments Joint Mobility Assessment Joint Mobility Assessment Scour: negative bilat Sacrum a/p: negative Pelvic compression: negative Pelvic distraction: negative SI joint: limited ER bilat, equal gapping IR bilat PT-OP-J Posture/Palpation/Skin Start: 10/10/21 17:47 Freq: Status: Active Protocol: Document 10/16/21 09:06 JG (Rec: 10/16/21 09:54 JG [id number]) Posture Evaluation Lilibeth Postural Classification System Lumbar Protective Mechanism Left AP 0 Lumbar Protective Mechanism Right AP 0 Lumbar Protective Mechanism Left PA 0 Lumbar Protective Mechanism Right PA 0 Palpation Assessment Location Pelvis Palpation Details Illiac crest appear to be level. ASIS and PSIS appear to be level. PSIS is where pt feels is the margoth of pain PT-OP-K Range of Motion Start: 10/10/21 17:47 Freq: Status: Active Protocol: Document 10/16/21 09:06 JG (Rec: 10/16/21 09:50 JG [id number]) Lumbar Spine Range of Motion Lumbar Spine Active Degrees Flexion 30 Extension 10 Comments w/flex quadrants very limited and shows limited lumbar motion w/flattening of lumbar spine; SB goes into flex and into contralateral rotation and notes contralateral tightness in back Hip Goniometric Range of Motion Hip Right Passive Comments R 82 w/o pelvis movement, 105 with L 93 w/o pelvis movement, 105 with Right Active Flexion w/Knee Flexed 82 Straight Leg Raise 75 Comments 108 flex w/innominate& lumbosacral motion Left Active Flexion w/Knee Flexed 93 Straight Leg Raise 55 Comments 105 flex w/innominate& lumbosacral motion PT-OP-L Special Tests Start: 10/10/21 17:47 Freq: Status: Active Protocol: Document 10/16/21 09:06 JG (Rec: 10/16/21 09:50 JG [id number]) Special Tests Lumbar Spine Special Tests HS Test Results lacking 20 deg to neutral w/90 /90 HS testing L: R lacking 24 deg Straight Leg Raise Test Results positive Comments increased w/DF bilat, not increased w/cervical flex PT-OP-M Strength Start: 10/10/21 17:47 Freq: Status: Active Protocol: Document 10/16/21 09:06 JG (Rec: 10/16/21 09:50 JG [id number]) Hip Strength Hip Manual Muscle Testing Right Flexion (L2) 5 Normal Extension (S1) 4 Good Abduction 3 Fair Adduction 4 Good External Rotation 4 Good Internal Rotation 5 Normal Left Flexion (L2) 5 Normal Extension (S1) 4 Good Abduction 4 Good Adduction 4 Good External Rotation 4 Good Internal Rotation 5 Normal Knee Strength Knee Manual Muscle Testing Right Flexion (S2) 5 Normal Extension (L3) 5 Normal Left Flexion (S2) 5 Normal Extension (L3) 5 Normal Ankle/Foot Strength Ankle and Foot Manual Muscle Testing Right Dorsiflexion (L4) 5 Normal Plantarflexion (S1) 5 Normal Left Dorsiflexion (L4) 5 Normal Plantarflexion (S1) 5 Normal Comments 20 heel raises B PT-OP-T Assessment and Plan Start: 10/10/21 17:47 Freq: Status: Active Protocol: Document 02/11/22 08:09 [facility] (Rec: 02/11/22 08:10 [facility] [id number]) Physical Therapy Assessment Goals 4 Impairment Walking up and down hills increases lumbar pain Cover Making Machine Operator Goal (LTG) Walking up and down hills does not increase lumbar pain LTG Duration 01/14/22 3 Impairment Sleeping is freq difficult due to lumbar pain Short Term Goal (STG) Pt will be proficient in sleep propping STG Duration 11/15/21 Cover Making Machine Operator Goal (LTG) Pt does not experience sleep disturbances due to lumbar pain LTG Duration 01/14/22 2 Impairment Thoracic pain w/standing and completing chest-high work Long-Term Goal (LTG) Able to complete 30 minutes of chest-high work in standing w /o thoracic pain LTG Duration 01/14/22 1 Impairment Lumbar pain w/lifting items heavier than 15+pounds, sitting for >1 hour, standing Short Term Goal (STG) Pt will be able to demostrate good lifting mechanics w/light weight STG Duration 11/15/21 Cover Making Machine Operator Goal (LTG) Pt is able to lift medium weights and thigh-high heavy items without increase in pain LTG Duration 01/14/22 Assessment Summary Assessment Patient called and stated he wishes to defer therapy as he has personal family issues at the moment. Patient will call when he is ready to get scheduled. Estimates will be about a week. Pt has not been seen for over 2.5 months and is DC at this time d/t no longer attending PT. Physical Therapy Plan Discharge Physical Therapy Discharge Reasons No Longer Attending PT
== END 2022-02-12 08:46 ==
LOC: PHYS 13:45
PROVIDERS: Family Provider Internal Medicine; PCP Internal Medicine; Referring Provider Internal Medicine; Visit Provider Internal Medicine
DX: M54.6 Pain in thoracic spine (principal); G89.29 Other chronic pain; M54.50 Low back pain, unspecified
CPT/HCPCS: 97110; 97140; 97161; 97535

== ENCOUNTER → 2022-03-05 09:43 | Outpatient (CLI) | payer MEDICARE, OTHER, SELFPAY ==
--- NOTE | 2022-03-05 09:47 | DI.US.S_ITS ---
PROCEDURE: US RENAL COMPLETE INDICATIONS: HX RIGHT PARTIAL NEPHRECTOMY TECHNIQUE: Real-time scanning was performed of the kidneys and bladder, with image documentation. COMPARISON: [facility], CT, CT ABDOMEN PELVIS WO CON, 07/13/2018, 10:59. FINDINGS: Kidneys: Kidneys are normal in size. Right kidney measures 10 point cm long; left kidney measures 9.9 cm long. Right renal cortical thickness is 1.6 cm; left renal cortical thickness is 1.4 cm. Renal cortical echotexture is normal. No hydronephrosis or nephrolithiasis. Within the mid right kidney, there is an echogenic solid mass with abnormal internal vascularity that measures 2.9 x 2.4 x 2 7 cm. Bladder: Pre-void bladder volume is 271 mL. Post-void residual is 0 mL. Pre-void images demonstrate no intraluminal masses or stones. On pre-void images, both ureteral jets are noted with color Doppler interrogation. (Of note, ureteral jets may not be detectable in up to 25% of cases due to insufficient differences in specific gravity between ureteral and bladder urine). Miscellaneous: No free pelvic fluid. IMPRESSION: 2.9 cm mid right kidney mass, which is highly suspicious for neoplasm. Please consider a follow-up renal mass protocol CT (without and with contrast) for further evaluation (assuming that there is no contraindication). Dictated by: Bryson Roa M.D. on 03/05/2022 at 9:43 Approved by: Bryson Roa M.D. on 03/05/2022 at 9:44
== END ==
PROVIDERS: Family Provider Internal Medicine; PCP Internal Medicine; Referring Provider Internal Medicine; Visit Provider Internal Medicine
DX: N28.89 Other specified disorders of kidney and ureter (principal); Z85.46 Personal history of malignant neoplasm of prostate
CPT/HCPCS: 76770

== ENCOUNTER → 2022-03-09 10:07 | Outpatient (CLI) | payer MEDICARE, OTHER, SELFPAY ==
--- NOTE | 2022-03-09 | DI.MRI.S_ITS ---
PROCEDURE: MR ABDOMEN WO/W CON INDICATIONS: RENAL MASS TECHNIQUE: Coronal HASTE through abdomen and pelvis; axial 2D FLASH in- and [id number] (with and without fat saturation), and breath-hold T2 FSE from the hepatic dome to the bottom of the kidneys. Coronal HASTE MR urogram of kidneys and bladder. Dynamic coronal VIBE during IV gadolinium administration; postgadolinium axial VIBE or 2D FLASH with fat saturation from the hepatic dome through the kidneys. COMPARISON: [facility], US, US RENAL COMPLETE, 03/05/2022, 10:00. [facility], MR, MR ABDOMEN WO/W CON, 07/30/2018, 15:27. FINDINGS: Image quality: Excellent. Genitourinary system: There has been a partial nephrectomy with resection of the right anterior superior pole mass seen previously. There is no convincing residual parenchymal mass in either kidney. There is no mass in the right renal pelvis to correspond to the ultrasound finding. No hydronephrosis. Occasional subcentimeter bilateral cysts. Other solid organs: The liver is normal size with a smooth margin and signal. It contains occasional subcentimeter cysts in both lobes. The gallbladder is surgically absent. The spleen is normal size. 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 The pancreas is otherwise normal. Pancreatic duct and biliary tree are nondilated. The gallbladder surgically absent. Nodes and vessels: Aorta and inferior vena cava are of normal caliber. Retro aortic left renal vein. No retroperitoneal adenopathy. Bowel and peritoneum: The visible portions of the stomach and bowel loops are normal. No free fluid in the abdomen or retroperitoneum. Lung bases: No basal effusions. Normal heart size. Bones and soft tissues: Partially imaged surgical changes at the L5-S1 level. Artifact from prior midline incision. Soft tissues are otherwise normal. IMPRESSION: 1. No mass to correspond to the ultrasound finding in the right renal pelvis. 2. Findings of prior right superior pole partial nephrectomy. 3. No MR findings of adenopathy or metastatic disease in the abdomen. Dictated by: Yamile Conway M.D. on 03/10/2022 at 20:49 Approved by: Yamile Conway M.D. on 03/10/2022 at 21:12
== END ==
PROVIDERS: Family Provider Internal Medicine; PCP Internal Medicine; Referring Provider Internal Medicine; Visit Provider Internal Medicine
DX: N28.89 Other specified disorders of kidney and ureter (principal)
CPT/HCPCS: 74183; A9579

== ENCOUNTER → 2022-09-11 08:47 | Outpatient (CLI) | payer MEDICARE, OTHER, SELFPAY ==
--- NOTE | 2022-09-11 08:48 | DI.US.S_ITS ---
PROCEDURE: US ABDOMEN LIMITED INDICATIONS: r/o inguinal hernia TECHNIQUE: Real-time focused scanning was performed of the abdomen, with image documentation. COMPARISON: [facility], US, US ABDOMEN COMPLETE, 07/08/2018, 8:21. FINDINGS: Suspected fat containing hernia measuring about 9 mm. IMPRESSION: Suspected fat containing hernia with neck measuring about 9 mm. Dictated by: Neil Wise M.D. on 09/11/2022 at 9:33 Approved by: Neil Wise M.D. on 09/11/2022 at 9:35
== END ==
PROVIDERS: Family Provider Internal Medicine; PCP Internal Medicine; Referring Provider Nurse Practitioner Family; Visit Provider Nurse Practitioner Family
DX: R10.31 Right lower quadrant pain (principal)
CPT/HCPCS: 76705

== ENCOUNTER → 2022-12-23 09:34 | Outpatient (CLI) | payer MEDICARE, OTHER, SELFPAY ==
--- NOTE | 2022-12-23 | DI.RAD.S_ITS ---
PROCEDURE: XR KNEE RT 3V INDICATIONS: Other internal derangements of right knee TECHNIQUE: 3 views of the knee were acquired. COMPARISON: None. FINDINGS: Bones: No fractures or dislocations. Mild to moderate joint space narrowing at the medial compartment. No suspicious bony lesions. Soft tissues: Small joint effusion. No suspicious soft tissue calcifications. 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 Consider MRI for further evaluation. Dictated by: Yovany Hung M.D. on 12/23/2022 at 19:28 Approved by: Yovany Hung M.D. on 12/23/2022 at 19:30
== END ==
PROVIDERS: Family Provider Internal Medicine; PCP Internal Medicine; Referring Provider Internal Medicine; Visit Provider Internal Medicine
DX: M23.8X1 Other internal derangements of right knee (principal); M17.11 Unilateral primary osteoarthritis, right knee
CPT/HCPCS: 73562

== ENCOUNTER → 2023-01-03 10:55 | Outpatient (CLI) | payer MEDICARE, OTHER, SELFPAY ==
--- NOTE | 2023-01-03 | DI.US.S_ITS ---
PROCEDURE: [facility]TREM [facility] INDICATIONS: PAIN IN LEFT LOWER LEG TECHNIQUE: Real-time imaging, as well as color and pulse Doppler interrogation, were performed of the lower extremity deep veins from the inguinal ligament to the popliteal fossa. COMPARISON: [facility], [facility], 09/25/2021, 14:48. FINDINGS: The common femoral, femoral and popliteal veins are normally compressible, and free of intraluminal thrombus. Color and pulse Doppler demonstrate normal phasic intraluminal flow. There is normal augmentation response to distal compression maneuver. IMPRESSION: Negative for deep venous thrombosis. Dictated by: Bryson Roa M.D. on 01/03/2023 at 10:38 Approved by: Bryson Roa M.D. on 01/03/2023 at 10:38
== END ==
PROVIDERS: Family Provider Internal Medicine; PCP Student in an Organized Health Care Education/Training Program; Referring Provider Student in an Organized Health Care Education/Training Program; Visit Provider Student in an Organized Health Care Education/Training Program
DX: M79.662 Pain in left lower leg (principal)
CPT/HCPCS: 93971

== ENCOUNTER → 2023-03-11 09:19 | Outpatient (CLI) | payer MEDICARE, OTHER, SELFPAY ==
--- NOTE | 2023-03-11 | DI.US.S_ITS ---
PROCEDURE: US ABDOMEN LIMITED INDICATIONS: HISTORY OF RIGHT INGUINAL HERNIA. LEFT GROIN LUMP. TECHNIQUE: Real-time focused scanning was performed of the abdomen, with image documentation. Color Doppler was also utilized. COMPARISON: [facility], US ABDOMEN LIMITED, 09/11/2022, 9:09. FINDINGS: Scanning is performed of both groins, including with Valsalva maneuver. No findings of hernia can be seen. No abnormal vascularity can be seen. IMPRESSION: Negative for hernia involving either groin. Dictated by: Bryson Roa M.D. on 03/11/2023 at 11:03 Approved by: Bryson Roa M.D. on 03/11/2023 at 11:04
== END ==
PROVIDERS: Family Provider Internal Medicine; PCP Student in an Organized Health Care Education/Training Program; Referring Provider Student in an Organized Health Care Education/Training Program; Visit Provider Student in an Organized Health Care Education/Training Program
DX: R10.32 Left lower quadrant pain (principal); R10.31 Right lower quadrant pain
CPT/HCPCS: 76705

== ENCOUNTER → 2023-03-28 13:17 | Outpatient (CLI) | payer MEDICARE, OTHER, SELFPAY ==
--- NOTE | 2023-03-28 | DI.MRI.S_ITS ---
PROCEDURE: MR ABDOMEN PELVIS WO CON COMPARISON: [facility], US, US ABDOMEN LIMITED, 03/11/2023, 9:23. [facility], MR, MR ABDOMEN WO/W CON, 03/09/2022, 10:28. INDICATIONS: Right lower quadrant pain Technique: Magnetic resonance images were obtained of the abdomen and pelvis without contrast using multiple sequences and multiple planes. FINDINGS: Image quality: There is motion artifact. Lower chest: No pleural effusions. Lungs are not well evaluated on this study. Solid organs: There are hepatic cysts. Similar prominent biliary system. No pathologic dilation of the pancreatic duct. No splenomegaly. Gallbladder is not seen. No adrenal nodules. No hydronephrosis. Vessels and lymph nodes: No abdominal aortic aneurysm. No pathologic adenopathy by size criteria. Bowel and peritoneum: Stomach is mildly distended. There is no evidence of small bowel obstruction. No abscess identified. Body wall: Right lower quadrant hernia repair material. Pelvis: Bladder is under distended, limiting evaluation. Bones: No acute or suspicious osseous finding. Lower lumbar hardware in place. IMPRESSION: Limited non-contrast MRI with motion artifact. No acute pathology or significant changes compared to 2021 imaging identified. No discrete hernia. Right lower quadrant hernia repair material is present. CT is less prone to motion artifact if there is persistent clinical concern. Dictated by: Neil Wise M.D. on 03/28/2023 at 15:22 Approved by: Neil Wise M.D. on 03/28/2023 at 15:33
== END ==
PROVIDERS: Family Provider Internal Medicine; PCP Student in an Organized Health Care Education/Training Program; Referring Provider Internal Medicine; Visit Provider Internal Medicine
DX: R10.31 Right lower quadrant pain (principal); Z98.890 Other specified postprocedural states; Z87.19 Personal history of other diseases of the digestive system; R10.32 Left lower quadrant pain
CPT/HCPCS: 72195; 74181

== ENCOUNTER → 2023-10-29 06:58 | Outpatient (CLI) | payer MEDICARE, OTHER, SELFPAY ==
--- NOTE | 2023-10-29 06:59 | DI.US.S_ITS ---
PROCEDURE: US ABDOMEN LIMITED INDICATIONS: RIGHT UPPER QUADRANT PAIN. HISTORY OF CHOLECYSTECTOMY TECHNIQUE: Real-time scanning was performed of the abdominal, with image documentation. COMPARISON: [facility], US, US ABDOMEN COMPLETE, 07/08/2018, 8:21. FINDINGS: Liver: Liver is normal in size and homogeneous in echotexture. Simple cyst in the left lobe of the liver measuring 0.5 cm. Portal vein demonstrates hepatopetal flow. Gallbladder: Absent. Biliary ducts: Intrahepatic bile ducts are non-dilated. Extrahepatic bile duct caliber measures 5 mm. Normal is 6-7 mm or less in diameter, or 10 mm or less post-cholecystectomy. Pancreas: Visualized portions of the pancreas are sonographically normal. Tail is only partially seen. IMPRESSION: Source for abdominal pain is not identified. No biliary ductal dilatation. Post cholecystectomy. Dictated by: Yovany Hung M.D. on 10/29/2023 at 10:35 Approved by: Yovany Hung M.D. on 10/29/2023 at 10:39
== END ==
PROVIDERS: Family Provider Internal Medicine; PCP Family Medicine; Referring Provider Family Medicine; Visit Provider Family Medicine
DX: R10.31 Right lower quadrant pain (principal); R10.11 Right upper quadrant pain; R10.32 Left lower quadrant pain; G89.29 Other chronic pain; Z90.49 Acquired absence of other specified parts of digestive tract
CPT/HCPCS: 76705

== ENCOUNTER → 2024-03-02 07:10 | Outpatient (CLI) | payer MEDICARE, OTHER, SELFPAY ==
[2024-03-02 07:55] LABS: Add Manual Diff / Slide Review NO; Basophils Absolute Auto 100 /uL (0-100); Basophils Percent Auto 0.9 % (0-2); Eosinophils Absolute Auto 200 /uL (0-450); Eosinophils Percent Auto 3.1 % (2-4); Hematocrit 38.7 % (41-53); Hemoglobin 13.4 g/dL (13.5-17.5); Lymphocytes Absolute Auto 2300 /uL (1100-4500); Lymphocytes Percent Auto 36.6 % (25-40); Mean Corpuscular HGB Conc 34.6 % (30-36); Mean Corpuscular Hemoglobin 31.9 PG (26-34); Mean Corpuscular Volume 92.2 fL (80-100); Monocytes Absolute Auto 600 /uL (0-900); Monocytes Percent Auto 10.3 % (3-14); Neutrophils Absolute Auto 3000 /uL (1500-7000); Neutrophils Percent Auto 49.1 % (50-75); Platelet Count 253 X10^3/uL (150-400); Red Cell Distribution Width 12.8 % (11.6-14.8); White Blood Cell Count 6.2 X10^3/uL (4.5-11.0)
[2024-03-02 08:14] LABS: Alanine Aminotransferase 27 IU/L (<50); Albumin 4.2 g/dL (3.5-5.0); Albumin Globulin Ratio 1.6 (1.0-2.8); Alkaline Phosphatase 85 U/L (38-126); Aspartate Aminotransferase 31 IU/L (17-59); Bilirubin Total 0.9 mg/dL (0.2-1.3); Blood Urea Nitrogen 21 mg/dL (9-20); Calcium 9.4 mg/dL (8.4-10.2); Carbon Dioxide 30 mmol/L (22-32); Chloride 104 mmol/L (98-107); Cholesterol 161 mg/dL (140-199); Estimated Glomerular Filt Rate > 60 mL/min (>60); Globulin 2.6 g/dL (1.7-4.1); Glucose 90 mg/dL (80-110); HDL Cholesterol 78 mg/dL (40-60); HEMOLYSIS < 15 (0-50); LDL Cholesterol Calculated 71 mg/dL (<100); Potassium 4.4 mmol/L (3.4-5.1); Sodium 134 mmol/L (137-145); Total Protein 6.8 g/dL (6.3-8.2); Triglycerides 60 mg/dL (35-150)
[2024-03-02 08:19] LABS: High Sensitivity CRP - Cardiac 0.4 mg/L (1.0-3.0)
[2024-03-02 08:43] LABS: TSH w/ Reflex to FT4 0.91 uIU/mL (0.47-4.68)
[2024-03-02 08:47] LABS: Prostate Specific Antigen Scrn < 0.064 ng/mL (0.1-4.0)
== END ==
LOC: LAB 07:12
PROVIDERS: Family Provider Internal Medicine; PCP Family Medicine; Referring Provider Family Medicine; Visit Provider Family Medicine
DX: Z12.5 Encounter for screening for malignant neoplasm of prostate (principal); E78.5 Hyperlipidemia, unspecified; R97.20 Elevated prostate specific antigen [PSA]; C61 Malignant neoplasm of prostate; D64.9 Anemia, unspecified; R53.83 Other fatigue
CPT/HCPCS: 36415; 80053; 80061; 84443; 85025; 86140; G0103

== ENCOUNTER → 2024-05-15 10:42 | Outpatient (CLI) | payer MEDICARE, OTHER, SELFPAY ==
--- NOTE | 2024-05-15 10:44 | DI.MRI.S_ITS ---
PROCEDURE: MR LUMBAR SPINE WO CON INDICATIONS: Increasing back pain; weakness(?) B lower extremities TECHNIQUE: Noncontrast sagittal T1 spin echo and T2 fast echo, sagittal STIR, and T2 fast spin echo through the lumbar spine. In cases with scoliosis, additional coronal T2 fast spin echo may be performed. COMPARISON: [facility], , MR LUMBAR SPINE WO CON, 07/24/2021, 11:57. FINDINGS: Image quality: Excellent. Alignment and Curvature: There is normal bony alignment. Remote interbody fusion and posterior decompressive laminectomy at L5-S1. Bone Marrow: Marrow is of normal overall signal. No acute vertebral body compression fractures. Spinal Cord: Conus medullaris terminates at the L2 level. Visualized cord demonstrates normal signal and size. Paraspinous Soft Tissues: No paravertebral masses. T12-L1: No canal stenosis or foraminal stenosis. L1-L2: Disc bulge. Mild facet hypertrophy. No canal stenosis or foraminal stenosis. L2-L3: Slight increase in disc bulge and facet and ligament hypertrophy. Increase in canal stenosis, now mild. Reference current axial image 15 of series 6. L3-L4: Interval progression. Disc bulge. Facet and ligament hypertrophy. Increased canal stenosis, previously mild and now moderate. Reference previous axial image 21 of series 5 and current axial image 20 of series 6. L4-L5: Stable findings. Disc bulge. Facet hypertrophy. No significant canal stenosis. L5-S1: Expected postoperative appearance. Remote interbody fusion and posterior decompression. No canal stenosis or foraminal stenosis. IMPRESSION: 1. Expected appearance at surgical level. No canal stenosis or foraminal stenosis. 2. Progressive findings at L2-L3 and L3-L4. Canal stenosis is still mild at L2-L3, it is now moderate at L3-L4. 3. No foraminal nerve root impingement. Dictated by: Tony Kat M.D. on 05/17/2024 at 13:12 Approved by: Tony Kat M.D. on 05/17/2024 at 13:21
== END ==
PROVIDERS: Family Provider Family Medicine; PCP Family Medicine; Referring Provider Physician Assistant; Visit Provider Physician Assistant
DX: M51.36 Other intervertebral disc degeneration, lumbar region (principal); M47.816 Spondylosis without myelopathy or radiculopathy, lumbar region; M48.061 Spinal stenosis, lumbar region without neurogenic claudication; R29.898 Other symptoms and signs involving the musculoskeletal system; M51.9 Unspecified thoracic, thoracolumbar and lumbosacral intervertebral disc disorder; M54.9 Dorsalgia, unspecified; G89.29 Other chronic pain; Z98.1 Arthrodesis status
CPT/HCPCS: 72148

== ENCOUNTER 2024-06-04 10:30 | Outpatient (RCR) | payer MEDICARE, OTHER, SELFPAY ==
--- NOTE | 2024-05-24 17:05 | PT.OIE ---
Current Diagnoses Other chronic pain (05/24/24) Unspecified thoracic, thoracolumbar and lumbosacral intervertebral disc disorder (05/24/24) Pain in thoracic spine (05/24/24) Dorsalgia, unspecified (05/24/24) Abnormal posture (05/24/24) Past Medical History (Last Updated 07/07/23 @ 17:20 by Judy Faria DO) Allergies Anxiety Cataracts, bilateral Chicken pox (~1954) Chronic back pain (~1962) Colon polyps (~1999) GERD (gastroesophageal reflux disease) Headache Hearing loss Herpes (~1973) History of elevated PSA (~2012) Hyperlipidemia (~1999) Lumbar disc disease (~1962) Measles Melanoma (~2008) Migraines Mumps (~1961) Prostate cancer (~2012) Skin cancer Sleep apnea (~2014) Tinnitus Past Surgical History (Last Updated 07/06/23 @ 16:59 by Pura Walters) Anesthesia H/O meniscectomy of right knee (~2011) History of appendectomy (~1954) History of back surgery (~2005) History of back surgery (~2007) History of cholecystectomy (~2006) History of hernia repair (~2022) History of nephrectomy, right (~2017) History of prostatectomy (~2012) History of tonsillectomy (~1968) History of vasectomy (~1988) Status post Mohs surgery (~2008) Status post Mohs surgery (~2017) Visit Care Team Role Provider Type Jduy Faria DO Attending Provider Physician Family Provider Primary Care Provider Referring Provider Specialty: Medical Address: [address] [place] [address], [address] [place] [address], [facility] Email: [email or web address] Physical Therapy Initial Evaluation PT-OP-A Visit Information Start: 05/24/24 16:36 Freq: Status: Active Protocol: Document 05/24/24 11:15 DCW (Rec: 05/24/24 16:52 DCW [id number]) Out-Patient Physical Therapy Visit Information Visit Information Visit Type Initial Evaluation Visit Start Time 11:15 Visit Stop Time 12:00 Visit Number 1 Number of WINDOW GLAZIER Visits 0 Evaluation Information Evaluation Date 05/24/24 PT-OP-B Current Condition Start: 05/24/24 16:36 Freq: Status: Active Protocol: Document 05/24/24 11:15 DCW (Rec: 05/24/24 16:52 [facility] [id number]) Current Condition History of Current Condition Current Complaints Thoracic/Lumbar/Sacral pain, abdominal pain, poor posture History of Current Condition Pt is a 73 year old male presenting with a long- standing, complex history of low back problems. Pt underwent a L5-S1 fusion in 2005, which he reports was an absolute disaster, leading to a very difficult and painful recovery lasting ~4.5 years until he regained normal function, although admits he was still worse off than pre- surgery. During that time, he also underwent a revision of his fusion, in which his posterior hardware was removed . Had multiple surgeries in addition since then, most recently in November 2022, had an inguinal hernia repair, which was also a poor recovery , and he continues to have surgical-site pain, especially with core contraction. Pt's main goals are to improve his posture in order to help his thoracic and lumbar pain, perserve motion in his lumbar spine, and, if possible, learn how to mobilize his SI. Prior Treatments and Tests Lumbar MRI: IMPRESSION: 1. Expected appearance at surgical level. No canal stenosis or foraminal stenosis . 2. Progressive findings at L2-L3 and L3-L4. Canal stenosis is still mild at L2- L3, it is now moderate at L3- L4. 3. No foraminal nerve root impingement. per Tony Kat M.D. on PT-OP-C Subjective Start: 05/24/24 16:36 Freq: Status: Active Protocol: Document 05/24/24 11:15 DCW (Rec: 05/24/24 16:52 [facility] [id number]) OP-PT Subjective Patient Comments Patient Comments I need to improve my posture, I got that old man slouch. Patient Questionnaires Oswestry Low Back Index Oswestry Score 10/50 = 20% PT-OP-F Manual Assessment Start: 05/24/24 16:36 Freq: Status: Active Protocol: Document 05/24/24 11:15 DCW (Rec: 05/24/24 16:52 [facility] [id number]) Manual Assessments Soft Tissue Assessment Soft Tissue Mobility Assessment B Pec tightness PT-OP-J Posture/Palpation/Skin Start: 05/24/24 16:36 Freq: Status: Active Protocol: Document 05/24/24 11:15 DCW (Rec: 05/24/24 16:52 DCW [id number]) Posture Evaluation Position Standing Head/C-Spine Posture Forward Head L-Spine Posture Flattened Shoulder Posture (L) Forward,(R) Forward Scapula Posture (R) Winged PT-OP-K Range of Motion Start: 05/24/24 16:36 Freq: Status: Active Protocol: Document 05/24/24 11:15 DCW (Rec: 05/24/24 16:52 DCW [id number]) Lumbar Spine Range of Motion Lumbar Spine Active Degrees Testing Position Standing Flexion 55 Extension 5 Lateral Flexion Left 48 Lateral Flexion Right 55 Comments Lateral flexion measured in cm from fingertips to floor PT-OP-L Special Tests Start: 05/24/24 16:36 Freq: Status: Active Protocol: Document 05/24/24 11:15 DCW (Rec: 05/24/24 16:52 DCW [id number]) Special Tests Lumbar Spine Special Tests A-P Shearing Test Results Mild R SI pain Straight Leg Raise Test Results B hamstring tightness Comments 55? L, 60? R Hip Special Tests Piriformis Test Results Positive bilaterally RANGEL Test Results Ipsilateral L stretch PT-OP-Q Treatments Start: 05/24/24 16:36 Freq: Status: Active Protocol: Document 05/24/24 11:15 DCW (Rec: 05/24/24 16:52 DCW [id number]) Therapeutic Exercises Supine Exercises Piriformis Supine Exercise Name Oipm-qh-myzmgfkc shoulder, Figure-4 Side bilateral Serratus punch Supine Exercise Name Serratus punch Side bilateral Sitting Exercises Piriformis Sitting Exercise Name Seated Figure-4 Standing Exercises Pec Stretch Standing Exercise Name Corner stretch 90/90 Side bilateral PT-OP-T Assessment and Plan Start: 05/24/24 16:36 Freq: Status: Active Protocol: Document 05/24/24 11:15 DCW (Rec: 05/24/24 17:05 DCW [id number]) Physical Therapy Assessment Rehab Potential Rehabilitation Potential Good Evaluation Complexity Number of Personal Factors/Comorbidities 3 or More Number of Body Systems Impaired 4 or More Clinical Presentation at Evaluation Unstable Impairments Impairments Activity Tolerance,Functional Activities,Functional Mobility ,Pain,Posture,ROM,Soft Tissue Mobility Goals 3 Impairment SLR limited to 55? L and 60? R secondary to hamstring tightness Impairment . Half-Way Goal (LTG) Pt to increase SLR to 75? bilaterally in order to decrease PPT secondary to hamstring tightness LTG Duration 07/25/24 2 Impairment Pt exhibits forward head/ rounded shoulder posture with winged R scapula Impairment . Half-Way Goal (LTG) Pt to decrease scapular winging to R=L and demonstrate posture WNL 75% of the time without cueing in order to decrease thoracic pain and improve baseline posture LTG Duration 07/25/24 1 Impairment Pt does not have an appropriate home exercise program Impairment . Short Term Goal (STG) Pt to be independent and compliant with an appropriate HEP STG Duration 06/24/24 Assessment Summary Assessment Pt presents with a complex history of multiple low back and abdominal surgeries, however overall goals for PT are fairly straight-forward. Pt does exhibit poor posture, with a forward head and rounded shoulders, as well as a winged right scapula. Pt additionally shows increased thoracic kyphosis/decreased lumbar lordosis. Due to long- history of low back problems, has also developed increased tone through hamstrings and piriformis bilaterally. Pt will likely benefit from posture training, as well as strengthening of parascapular musculature. Additionally, pt should benefit from LE and lumbar stretching, and gentle core strengthening, which can hopefully be performed without irritation of surgical-site pain following hernia repair last year. Good response to HEP provided today. Physical Therapy Plan Frequency and Duration Frequency of Treatment 2x/Week Plan of Care Start Date 05/24/24 Plan of Care End Date 07/25/24 Therapeutic Interventions Therapeutic Interventions Home Exercise Program,Joint Mobilizations,Manual Therapy, Neuromuscular Re-education, Patient/Caregiver Education, Self-Care/Home Management,Soft Tissue Mobilization, Therapeutic Activities, Therapeutic Exercises Modalities Cold Pack/Ice Massage,Electric Stimulation,Hot Packs, Ultrasound Next Visit Focus/Plan Next Note Type Treatment Note Next Visit Plan Pallof press, LE stretching/ flexibility, posture exercises
--- NOTE | 2024-05-24 17:06 | PT.OPPOC ---
Physical, Occupational & Speech Therapy At [facility] Current Diagnoses Other chronic pain (05/24/24) Unspecified thoracic, thoracolumbar and lumbosacral intervertebral disc disorder (05/24/24) Pain in thoracic spine (05/24/24) Dorsalgia, unspecified (05/24/24) Abnormal posture (05/24/24) Visit Care Team Role Provider Type Judy Faria DO Attending Provider Physician Family Provider Primary Care Provider Referring Provider Specialty: Medical Address: [address] [place] [address], [address], [place], [address] Email: [email or web address] Plan Of Care PT-OP-T Assessment and Plan Start: 05/24/24 16:36 Freq: Status: Active Protocol: Document 05/24/24 11:15 DCW (Rec: 05/24/24 17:05 DCW [id number]) Physical Therapy Assessment Rehab Potential Rehabilitation Potential Good Evaluation Complexity Number of Personal Factors/Comorbidities 3 or More Number of Body Systems Impaired 4 or More Clinical Presentation at Evaluation Unstable Impairments Impairments Activity Tolerance,Functional Activities,Functional Mobility ,Pain,Posture,ROM,Soft Tissue Mobility Goals 3 Impairment SLR limited to 55? L and 60? R secondary to hamstring tightness Impairment . Box Blank Machine Feeder Goal (LTG) Pt to increase SLR to 75? bilaterally in order to decrease PPT secondary to hamstring tightness LTG Duration 07/25/24 2 Impairment Pt exhibits forward head/ rounded shoulder posture with winged R scapula Impairment . Prison Goal (LTG) Pt to decrease scapular winging to R=L and demonstrate posture WNL 75% of the time without cueing in order to decrease thoracic pain and improve baseline posture LTG Duration 07/25/24 1 Impairment Pt does not have an appropriate home exercise program Impairment . Short Term Goal (STG) Pt to be independent and compliant with an appropriate HEP STG Duration 06/24/24 Assessment Summary Assessment Pt presents with a complex history of multiple low back and abdominal surgeries, however overall goals for PT are fairly straight-forward. Pt does exhibit poor posture, with a forward head and rounded shoulders, as well as a winged right scapula. Pt additionally shows increased thoracic kyphosis/decreased lumbar lordosis. Due to long- history of low back problems, has also developed increased tone through hamstrings and piriformis bilaterally. Pt will likely benefit from posture training, as well as strengthening of parascapular musculature. Additionally, pt should benefit from LE and lumbar stretching, and gentle core strengthening, which can hopefully be performed without irritation of surgical-site pain following hernia repair last year. Good response to HEP provided today. Physical Therapy Plan Frequency and Duration Frequency of Treatment 2x/Week Plan of Care Start Date 05/24/24 Plan of Care End Date 07/25/24 Therapeutic Interventions Therapeutic Interventions Home Exercise Program,Joint Mobilizations,Manual Therapy, Neuromuscular Re-education, Patient/Caregiver Education, Self-Care/Home Management,Soft Tissue Mobilization, Therapeutic Activities, Therapeutic Exercises Modalities Cold Pack/Ice Massage,Electric Stimulation,Hot Packs, Ultrasound Next Visit Focus/Plan Next Note Type Treatment Note Next Visit Plan Pallof press, LE stretching/ flexibility, posture exercises Plan of Care Dates Plan of Care Start Date 05/24/24 Plan of Care End Date 07/25/24 Electronically Signed by: Klever Jesus, PT 05/24/24 0331 If you are in agreement with this Plan of Care, please return a signed and dated copy. I have reviewed this Plan of Care and certify that the skilled therapy services above are required to meet the patient?s needs. Physician Signature Date Printed Name and Credentials Clinical Instructor Signature Printed Name and Credentials
--- NOTE | 2024-05-28 12:46 | PT.OTN ---
Current Diagnoses Other chronic pain (05/28/24) Unspecified thoracic, thoracolumbar and lumbosacral intervertebral disc disorder (05/28/24) Pain in thoracic spine (05/28/24) Dorsalgia, unspecified (05/28/24) Abnormal posture (05/28/24) Physical Therapy Treatment Note PT-OP-A Visit Information Start: 05/24/24 16:36 Freq: Status: Active Protocol: Document 05/28/24 10:29 AB (Rec: 05/28/24 12:46 AB [id number]) Out-Patient Physical Therapy Visit Information Visit Information Visit Type Treatment Note Visit Start Time 11:17 Visit Stop Time 12:02 Visit Number 2 Number of BEAM DYER RECESSED VAT Visits 1 Evaluation Information Evaluation Date 05/24/24 PT-OP-B Current Condition Start: 05/24/24 16:36 Freq: Status: Active Protocol: Document 05/24/24 11:15 DCW (Rec: 05/24/24 16:52 DCW [id number]) Current Condition History of Current Condition Current Complaints Thoracic/Lumbar/Sacral pain, abdominal pain, poor posture History of Current Condition Pt is a 73 year old male presenting with a long- standing, complex history of low back problems. Pt underwent a L5-S1 fusion in 2005, which he reports was an absolute disaster, leading to a very difficult and painful recovery lasting ~4.5 years until he regained normal function, although admits he was still worse off than pre- surgery. During that time, he also underwent a revision of his fusion, in which his posterior hardware was removed . Had multiple surgeries in addition since then, most recently in November 2022, had an inguinal hernia repair, which was also a poor recovery , and he continues to have surgical-site pain, especially with core contraction. Pt's main goals are to improve his posture in order to help his thoracic and lumbar pain, perserve motion in his lumbar spine, and, if possible, learn how to mobilize his SI. Prior Treatments and Tests Lumbar MRI: IMPRESSION: 1. Expected appearance at surgical level. No canal stenosis or foraminal stenosis . 2. Progressive findings at L2-L3 and L3-L4. Canal stenosis is still mild at L2- L3, it is now moderate at L3- L4. 3. No foraminal nerve root impingement. per Tony Kat M.D. on PT-OP-C Subjective Start: 05/24/24 16:36 Freq: Status: Active Protocol: Document 05/28/24 10:29 AB (Rec: 05/28/24 12:46 AB [id number]) OP-PT Subjective Patient Comments Patient Comments Patient reports the pec stretch in the corner aggravated his back and the seate piriformis /vijaya stretch aggravated the SI area . instructed patient in pec stretch on foam roller and patient reports he did have to flatten the back and engage abdominal muscles, but did not aggravate back PT-OP-F Manual Assessment Start: 05/24/24 16:36 Freq: Status: Active Protocol: Document 05/24/24 11:15 DCW (Rec: 05/24/24 16:52 DCW [id number]) Manual Assessments Soft Tissue Assessment Soft Tissue Mobility Assessment B Pec tightness PT-OP-J Posture/Palpation/Skin Start: 05/24/24 16:36 Freq: Status: Active Protocol: Document 05/24/24 11:15 DCW (Rec: 05/24/24 16:52 DCW [id number]) Posture Evaluation Position Standing Head/C-Spine Posture Forward Head L-Spine Posture Flattened Shoulder Posture (L) Forward,(R) Forward Scapula Posture (R) Winged PT-OP-K Range of Motion Start: 05/24/24 16:36 Freq: Status: Active Protocol: Document 05/24/24 11:15 DCW (Rec: 05/24/24 16:52 DCW [id number]) Lumbar Spine Range of Motion Lumbar Spine Active Degrees Testing Position Standing Flexion 55 Extension 5 Lateral Flexion Left 48 Lateral Flexion Right 55 Comments Lateral flexion measured in cm from fingertips to floor PT-OP-L Special Tests Start: 05/24/24 16:36 Freq: Status: Active Protocol: Document 05/24/24 11:15 DCW (Rec: 05/24/24 16:52 DCW [id number]) Special Tests Lumbar Spine Special Tests A-P Shearing Test Results Mild R SI pain Straight Leg Raise Test Results B hamstring tightness Comments 55? L, 60? R Hip Special Tests Piriformis Test Results Positive bilaterally VIJAYA Test Results Ipsilateral L stretch PT-OP-Q Treatments Start: 05/24/24 16:36 Freq: Status: Active Protocol: Document 05/28/24 10:29 AB (Rec: 05/28/24 12:46 AB [id number]) Therapeutic Exercises Supine Exercises pec stretch on foam roller Supine Exercise Name added to HEP Breathing from diaphragm in modified restorative pose Supine Exercise Name hooklying 90/90 LE's supported Reps/Minutes 3 min Comments infracostal angle 110 deg, verbal cues for breathing from diaphragm hamstring stretch Supine Exercise Name holding LE with towel Side bilateral Reps/Minutes X2 45 sec then AROM knee flex/ ext X 15 figure 4 stretch Supine Exercise Name from hooklying Reps/Minutes X2 60 seconds Comments verbal cues trial with Sitting Exercises seated hip abduction with band Side bilateral Resistance level 2 band Reps/Minutes one minute X 1 Comments Pt ed rationale of isometric ex for pain relief Standing Exercises Pallof press Side bilateral Resistance level one and level 2 band Reps/Minutes X15 each side each band Comments Verbal and visual cues high row Standing Exercise Name stagger stance Side bilateral Resistance level one band Reps/Minutes X15 Comments verbal and visual cues row Standing Exercise Name stagger stance Side bilateral Resistance level one band Reps/Minutes 15X2 Comments Verbal and visual cues PT-OP-T Assessment and Plan Start: 05/24/24 16:36 Freq: Status: Active Protocol: Document 05/28/24 10:29 AB (Rec: 05/28/24 12:46 AB [id number]) Physical Therapy Assessment Goals 3 Impairment SLR limited to 55? L and 60? R secondary to hamstring tightness Impairment . Global Engineering Manager Goal (LTG) Pt to increase SLR to 75? bilaterally in order to decrease PPT secondary to hamstring tightness LTG Duration 07/25/24 2 Impairment Pt exhibits forward head/ rounded shoulder posture with winged R scapula Impairment . Global Engineering Manager Goal (LTG) Pt to decrease scapular winging to R=L and demonstrate posture WNL 75% of the time without cueing in order to decrease thoracic pain and improve baseline posture LTG Duration 07/25/24 1 Impairment Pt does not have an appropriate home exercise program Impairment . Short Term Goal (STG) Pt to be independent and compliant with an appropriate HEP STG Duration 06/24/24 Assessment Summary Assessment Good return demonstration for exercises this session, able to modify figure 4 stretch to hooklying to improve tolerance . Patient reports he never has no pain end of session, but pain is the same as start of session. Trial of seated hip abd with band with one minute hold end post this comment patient comments he thinks he may have less pain. Physical Therapy Plan Frequency and Duration Frequency of Treatment 2x/Week Plan of Care Start Date 05/24/24 Plan of Care End Date 07/25/24 Next Visit Focus/Plan Next Note Type Treatment Note Next Visit Plan assess fabricio to Pallof press, LE stretching/flexibility, posture exercises possibly squats, add seated hip abduction with one minute hold to HEP
--- NOTE | 2024-06-01 12:08 | PT.OTN ---
Current Diagnoses Other chronic pain (06/01/24) Unspecified thoracic, thoracolumbar and lumbosacral intervertebral disc disorder (06/01/24) Pain in thoracic spine (06/01/24) Dorsalgia, unspecified (06/01/24) Abnormal posture (06/01/24) Physical Therapy Treatment Note PT-OP-A Visit Information Start: 05/24/24 16:36 Freq: Status: Active Protocol: Document 06/01/24 11:16 AB (Rec: 06/01/24 12:08 AB [id number]) Out-Patient Physical Therapy Visit Information Visit Information Visit Type Treatment Note Visit Start Time 11:19 Visit Stop Time 12:03 Visit Number 3 Number of PARTNER CCO Visits 2 Evaluation Information Evaluation Date 05/24/24 PT-OP-B Current Condition Start: 05/24/24 16:36 Freq: Status: Active Protocol: Document 05/24/24 11:15 DCW (Rec: 05/24/24 16:52 DCW [id number]) Current Condition History of Current Condition Current Complaints Thoracic/Lumbar/Sacral pain, abdominal pain, poor posture History of Current Condition Pt is a 73 year old male presenting with a long- standing, complex history of low back problems. Pt underwent a L5-S1 fusion in 2005, which he reports was an absolute disaster, leading to a very difficult and painful recovery lasting ~4.5 years until he regained normal function, although admits he was still worse off than pre- surgery. During that time, he also underwent a revision of his fusion, in which his posterior hardware was removed . Had multiple surgeries in addition since then, most recently in November 2022, had an inguinal hernia repair, which was also a poor recovery , and he continues to have surgical-site pain, especially with core contraction. Pt's main goals are to improve his posture in order to help his thoracic and lumbar pain, perserve motion in his lumbar spine, and, if possible, learn how to mobilize his SI. Prior Treatments and Tests Lumbar MRI: IMPRESSION: 1. Expected appearance at surgical level. No canal stenosis or foraminal stenosis . 2. Progressive findings at L2-L3 and L3-L4. Canal stenosis is still mild at L2- L3, it is now moderate at L3- L4. 3. No foraminal nerve root impingement. per Tony Kat M.D. on PT-OP-C Subjective Start: 05/24/24 16:36 Freq: Status: Active Protocol: Document 06/01/24 11:16 AB (Rec: 06/01/24 12:08 AB [id number]) OP-PT Subjective Patient Comments Patient Comments Patient reports he was working on spr[employer]atch[employer]ler system, comments one of the bands broke, the other was too short, Pallof press was painful ( demonstrates the exercise incorrectly when commenting on it start of session ) PT-OP-F Manual Assessment Start: 05/24/24 16:36 Freq: Status: Active Protocol: Document 05/24/24 11:15 DCW (Rec: 05/24/24 16:52 DCW [id number]) Manual Assessments Soft Tissue Assessment Soft Tissue Mobility Assessment B Pec tightness PT-OP-J Posture/Palpation/Skin Start: 05/24/24 16:36 Freq: Status: Active Protocol: Document 05/24/24 11:15 DCW (Rec: 05/24/24 16:52 DCW [id number]) Posture Evaluation Position Standing Head/C-Spine Posture Forward Head L-Spine Posture Flattened Shoulder Posture (L) Forward,(R) Forward Scapula Posture (R) Winged PT-OP-K Range of Motion Start: 05/24/24 16:36 Freq: Status: Active Protocol: Document 05/24/24 11:15 DCW (Rec: 05/24/24 16:52 DCW [id number]) Lumbar Spine Range of Motion Lumbar Spine Active Degrees Testing Position Standing Flexion 55 Extension 5 Lateral Flexion Left 48 Lateral Flexion Right 55 Comments Lateral flexion measured in cm from fingertips to floor PT-OP-L Special Tests Start: 05/24/24 16:36 Freq: Status: Active Protocol: Document 05/24/24 11:15 DCW (Rec: 05/24/24 16:52 DCW [id number]) Special Tests Lumbar Spine Special Tests A-P Shearing Test Results Mild R SI pain Straight Leg Raise Test Results B hamstring tightness Comments 55? L, 60? R Hip Special Tests Piriformis Test Results Positive bilaterally RANGEL Test Results Ipsilateral L stretch PT-OP-Q Treatments Start: 05/24/24 16:36 Freq: Status: Active Protocol: Document 06/01/24 11:16 AB (Rec: 06/01/24 12:08 AB [id number]) Therapeutic Exercises Supine Exercises pec stretch on foam roller Side bilateral Reps/Minutes 2 min hamstring stretch Supine Exercise Name holding LE with towel Side bilateral Reps/Minutes X2 45 sec then AROM knee flex/ ext X 15 Standing Exercises Pallof press Side bilateral Resistance level one Reps/Minutes 15 X 2 each side Comments verbal and visual cues high row Standing Exercise Name stagger stance Side bilateral Resistance level 2 band Reps/Minutes X15 Comments verbal and visual cues row Standing Exercise Name stagger stance Side bilateral Resistance level 2 band Reps/Minutes 15X2 Comments monitored for pain Therapeutic Activity Therapeutic Activity sit to stand Reps/Minutes X3 Comments Pt ed use of self tactile cues for hip hinge Manual Therapy Treatment Soft Tissue Mobilization bilateral hamstring Mobilization Type Cross-Friction,Rolling Intensity/Depth Moderate Body Position Prone Comments prior to stretch PT-OP-T Assessment and Plan Start: 05/24/24 16:36 Freq: Status: Active Protocol: Document 06/01/24 11:16 AB (Rec: 06/01/24 12:08 AB [id number]) Physical Therapy Assessment Goals 3 Impairment SLR limited to 55? L and 60? R secondary to hamstring tightness Impairment . Snf Goal (LTG) Pt to increase SLR to 75? bilaterally in order to decrease PPT secondary to hamstring tightness LTG Duration 07/25/24 2 Impairment Pt exhibits forward head/ rounded shoulder posture with winged R scapula Impairment . College And Career Counselor Goal (LTG) Pt to decrease scapular winging to R=L and demonstrate posture WNL 75% of the time without cueing in order to decrease thoracic pain and improve baseline posture LTG Duration 07/25/24 1 Impairment Pt does not have an appropriate home exercise program Impairment . Short Term Goal (STG) Pt to be independent and compliant with an appropriate HEP STG Duration 06/24/24 Physical Therapy Plan Next Visit Focus/Plan Next Note Type Treatment Note Next Visit Plan LE stretching/flexibility, posture exercises possibly squats, add seated hip abduction with one minute hold to HEP
--- NOTE | 2024-06-04 11:14 | PT.OTN ---
Current Diagnoses Other chronic pain (06/04/24) Unspecified thoracic, thoracolumbar and lumbosacral intervertebral disc disorder (06/04/24) Pain in thoracic spine (06/04/24) Dorsalgia, unspecified (06/04/24) Abnormal posture (06/04/24) Physical Therapy Treatment Note PT-OP-A Visit Information Start: 05/24/24 16:36 Freq: Status: Active Protocol: Document 06/04/24 10:30 DCW (Rec: 06/04/24 11:14 DCW [id number]) Out-Patient Physical Therapy Visit Information Visit Information Visit Type Treatment Note Visit Start Time 10:30 Visit Stop Time 11:03 Visit Number 4 Number of GLOVE PARTS CUTTER Visits 0 Evaluation Information Evaluation Date 05/24/24 PT-OP-B Current Condition Start: 05/24/24 16:36 Freq: Status: Active Protocol: Document 05/24/24 11:15 DCW (Rec: 05/24/24 16:52 DCW [id number]) Current Condition History of Current Condition Current Complaints Thoracic/Lumbar/Sacral pain, abdominal pain, poor posture History of Current Condition Pt is a 73 year old male presenting with a long- standing, complex history of low back problems. Pt underwent a L5-S1 fusion in 2005, which he reports was an absolute disaster, leading to a very difficult and painful recovery lasting ~4.5 years until he regained normal function, although admits he was still worse off than pre- surgery. During that time, he also underwent a revision of his fusion, in which his posterior hardware was removed . Had multiple surgeries in addition since then, most recently in November 2022, had an inguinal hernia repair, which was also a poor recovery , and he continues to have surgical-site pain, especially with core contraction. Pt's main goals are to improve his posture in order to help his thoracic and lumbar pain, perserve motion in his lumbar spine, and, if possible, learn how to mobilize his SI. Prior Treatments and Tests Lumbar MRI: IMPRESSION: 1. Expected appearance at surgical level. No canal stenosis or foraminal stenosis . 2. Progressive findings at L2-L3 and L3-L4. Canal stenosis is still mild at L2- L3, it is now moderate at L3- L4. 3. No foraminal nerve root impingement. per Tony Kat M.D. on PT-OP-C Subjective Start: 05/24/24 16:36 Freq: Status: Active Protocol: Document 06/04/24 10:30 DCW (Rec: 06/04/24 11:14 DCW [id number]) OP-PT Subjective Patient Comments Patient Comments I'm starting to adapt to the exercises you've given me, I needed to make a few adjustments to make sure they didn't exacerbate anything, but I'm better than I was the first time I saw you. PT-OP-F Manual Assessment Start: 05/24/24 16:36 Freq: Status: Active Protocol: Document 05/24/24 11:15 DCW (Rec: 05/24/24 16:52 DCW [id number]) Manual Assessments Soft Tissue Assessment Soft Tissue Mobility Assessment B Pec tightness PT-OP-J Posture/Palpation/Skin Start: 05/24/24 16:36 Freq: Status: Active Protocol: Document 05/24/24 11:15 DCW (Rec: 05/24/24 16:52 DCW [id number]) Posture Evaluation Position Standing Head/C-Spine Posture Forward Head L-Spine Posture Flattened Shoulder Posture (L) Forward,(R) Forward Scapula Posture (R) Winged PT-OP-K Range of Motion Start: 05/24/24 16:36 Freq: Status: Active Protocol: Document 05/24/24 11:15 DCW (Rec: 05/24/24 16:52 DCW [id number]) Lumbar Spine Range of Motion Lumbar Spine Active Degrees Testing Position Standing Flexion 55 Extension 5 Lateral Flexion Left 48 Lateral Flexion Right 55 Comments Lateral flexion measured in cm from fingertips to floor PT-OP-L Special Tests Start: 05/24/24 16:36 Freq: Status: Active Protocol: Document 05/24/24 11:15 DCW (Rec: 05/24/24 16:52 DCW [id number]) Special Tests Lumbar Spine Special Tests A-P Shearing Test Results Mild R SI pain Straight Leg Raise Test Results B hamstring tightness Comments 55? L, 60? R Hip Special Tests Piriformis Test Results Positive bilaterally RANGEL Test Results Ipsilateral L stretch PT-OP-Q Treatments Start: 05/24/24 16:36 Freq: Status: Active Protocol: Document 06/04/24 10:30 DCW (Rec: 06/04/24 11:14 DC [id number]) Gym Equipment Therapeutic Ball Pelvic tilts/circles Exercise Details Pelvic tilts/circles Ball Size/Color Green - 65 cm Body Position Seated Therapeutic Exercises Supine Exercises Bridging Supine Exercise Name Bridging /c adductor ball squeeze Resisted KtC Supine Exercise Name Resisted KtC /c UEs Side bilateral Sidelying Exercises Hip Abduction Sidelying Exercise Name Hip Abduction Side bilateral Reverse Clamshell Sidelying Exercise Name Reverse Clamshell Side bilateral Clamshell Sidelying Exercise Name Clamshell Side bilateral PT-OP-T Assessment and Plan Start: 05/24/24 16:36 Freq: Status: Active Protocol: Document 06/04/24 10:30 DCW (Rec: 06/04/24 11:14 DCW [id number]) Physical Therapy Assessment Assessment Summary Assessment Pt feels good with overall response to treatments and improvements since beginning HEP. Leaning toward feeling like alright to discharge, however pt hoping to have follow-up in 2-3 weeks just in case he needs to have adjustments to HEP or has questions. Physical Therapy Plan Frequency and Duration Frequency of Treatment 2x/Week Plan of Care Start Date 05/24/24 Plan of Care End Date 07/25/24 Next Visit Focus/Plan Next Note Type Treatment Note Next Visit Plan assess fabricio to Pallof press, LE stretching/flexibility, posture exercises possibly squats, add seated hip abduction with one minute hold to HEP
--- NOTE | 2024-07-09 08:33 | PT.OPDS ---
Current Diagnoses Other chronic pain (06/04/24) Unspecified thoracic, thoracolumbar and lumbosacral intervertebral disc disorder (06/04/24) Pain in thoracic spine (06/04/24) Dorsalgia, unspecified (06/04/24) Abnormal posture (06/04/24) Visit Care Team Role Provider Type Judy Faria DO Attending Provider Physician Family Provider Primary Care Provider Referring Provider Specialty: Medical Address: [address] [place] [address], [address], [place], [address] Email: [email or web address] Visit Number Visit Number 4 Discharge Summary PT-OP-B Current Condition Start: 05/24/24 16:36 Freq: Status: Active Protocol: Document 05/24/24 11:15 DCW (Rec: 05/24/24 16:52 DCW [id number]) Current Condition History of Current Condition Current Complaints Thoracic/Lumbar/Sacral pain, abdominal pain, poor posture History of Current Condition Pt is a 73 year old male presenting with a long- standing, complex history of low back problems. Pt underwent a L5-S1 fusion in 2005, which he reports was an absolute disaster, leading to a very difficult and painful recovery lasting ~4.5 years until he regained normal function, although admits he was still worse off than pre- surgery. During that time, he also underwent a revision of his fusion, in which his posterior hardware was removed . Had multiple surgeries in addition since then, most recently in November 2022, had an inguinal hernia repair, which was also a poor recovery , and he continues to have surgical-site pain, especially with core contraction. Pt's main goals are to improve his posture in order to help his thoracic and lumbar pain, perserve motion in his lumbar spine, and, if possible, learn how to mobilize his SI. Prior Treatments and Tests Lumbar MRI: IMPRESSION: 1. Expected appearance at surgical level. No canal stenosis or foraminal stenosis . 2. Progressive findings at L2-L3 and L3-L4. Canal stenosis is still mild at L2- L3, it is now moderate at L3- L4. 3. No foraminal nerve root impingement. per Tony Kat M.D. on PT-OP-C Subjective Start: 05/24/24 16:36 Freq: Status: Active Protocol: Document 06/04/24 10:30 DCW (Rec: 06/04/24 11:14 DCW [id number]) OP-PT Subjective Patient Comments Patient Comments I'm starting to adapt to the exercises you've given me, I needed to make a few adjustments to make sure they didn't exacerbate anything, but I'm better than I was the first time I saw you. PT-OP-F Manual Assessment Start: 05/24/24 16:36 Freq: Status: Active Protocol: Document 05/24/24 11:15 DCW (Rec: 05/24/24 16:52 DCW [id number]) Manual Assessments Soft Tissue Assessment Soft Tissue Mobility Assessment B Pec tightness PT-OP-J Posture/Palpation/Skin Start: 05/24/24 16:36 Freq: Status: Active Protocol: Document 05/24/24 11:15 DCW (Rec: 05/24/24 16:52 DCW [id number]) Posture Evaluation Position Standing Head/C-Spine Posture Forward Head L-Spine Posture Flattened Shoulder Posture (L) Forward,(R) Forward Scapula Posture (R) Winged PT-OP-K Range of Motion Start: 05/24/24 16:36 Freq: Status: Active Protocol: Document 05/24/24 11:15 DCW (Rec: 05/24/24 16:52 DCW [id number]) Lumbar Spine Range of Motion Lumbar Spine Active Degrees Testing Position Standing Flexion 55 Extension 5 Lateral Flexion Left 48 Lateral Flexion Right 55 Comments Lateral flexion measured in cm from fingertips to floor PT-OP-L Special Tests Start: 05/24/24 16:36 Freq: Status: Active Protocol: Document 05/24/24 11:15 DCW (Rec: 05/24/24 16:52 DCW [id number]) Special Tests Lumbar Spine Special Tests A-P Shearing Test Results Mild R SI pain Straight Leg Raise Test Results B hamstring tightness Comments 55? L, 60? R Hip Special Tests Piriformis Test Results Positive bilaterally RANGEL Test Results Ipsilateral L stretch PT-OP-T Assessment and Plan Start: 05/24/24 16:36 Freq: Status: Active Protocol: Document 07/09/24 08:31 DCW (Rec: 07/09/24 08:33 DCW [id number]) Physical Therapy Assessment Assessment Summary Assessment At last appointment, pt was feeling well enough to think about discharge, but wanted to scheduled follow-up in ~1 month just in case. Pt phoned clinic to cancel final appointment, stating he was alright with discharge. Pt discharged from skilled PT at this time. Physical Therapy Plan Frequency and Duration Frequency of Treatment 2x/Week Plan of Care Start Date 05/24/24 Plan of Care End Date 07/25/24 Therapeutic Interventions Therapeutic Interventions Home Exercise Program,Joint Mobilizations,Manual Therapy, Neuromuscular Re-education, Patient/Caregiver Education, Self-Care/Home Management,Soft Tissue Mobilization, Therapeutic Activities, Therapeutic Exercises Modalities Cold Pack/Ice Massage,Electric Stimulation,Hot Packs, Ultrasound Discharge Physical Therapy Discharge Reasons Patient Request Next Visit Focus/Plan Next Note Type Discharge Summary
== END 2024-08-03 08:57 | disposition home or self-care (01) ==
LOC: PHYS 10:30
PROVIDERS: Family Provider Family Medicine; PCP Family Medicine; Referring Provider Family Medicine; Visit Provider Family Medicine
DX: M54.9 Dorsalgia, unspecified (principal); G89.29 Other chronic pain; M51.9 Unspecified thoracic, thoracolumbar and lumbosacral intervertebral disc disorder; R29.3 Abnormal posture
CPT/HCPCS: 97110; 97140; 97163

== ENCOUNTER → 2024-08-10 07:19 | Outpatient (CLI) | payer MEDICARE, OTHER, SELFPAY ==
[2024-08-10 08:31] LABS: Add Manual Diff / Slide Review NO; Basophils Absolute Auto 100 /uL (0-100); Basophils Percent Auto 1.1 % (0-2); Eosinophils Absolute Auto 200 /uL (0-450); Eosinophils Percent Auto 3.2 % (2-4); Hematocrit 39.1 % (41-53); Hemoglobin 13.6 g/dL (13.5-17.5); Lymphocytes Absolute Auto 1900 /uL (1100-4500); Lymphocytes Percent Auto 34.5 % (25-40); Mean Corpuscular HGB Conc 34.7 % (30-36); Mean Corpuscular Hemoglobin 32.6 PG (26-34); Monocytes Absolute Auto 600 /uL (0-900); Neutrophils Absolute Auto 2800 /uL (1500-7000); Neutrophils Percent Auto 50.2 % (50-75); Platelet Count 238 X10^3/uL (150-400); Red Blood Cell Count 4.16 X10^6/uL (4.5-5.9); Red Cell Distribution Width 12.8 % (11.6-14.8); White Blood Cell Count 5.6 X10^3/uL (4.5-11.0)
[2024-08-10 09:18] LABS: Testosterone 347 ng/dL (71.8-623)
[2024-08-10 09:36] LABS: Vitamin B12 675 pg/mL (239-931)
== END ==
PROVIDERS: Family Provider Family Medicine; PCP Family Medicine; Referring Provider Physician Assistant; Visit Provider Physician Assistant
DX: R53.83 Other fatigue (principal); D64.9 Anemia, unspecified
CPT/HCPCS: 36415; 82607; 84403; 85025

== ENCOUNTER → 2024-12-16 11:58 | Outpatient (CLI) | payer MEDICARE, OTHER, SELFPAY ==
[2024-12-16 12:39] LABS: Influenza A - CEPHEID Flu A POSITIVE (NEGATIVE); Influenza B - CEPHEID Flu B NEGATIVE (NEGATIVE); Respiratory Syncytial Virus Negative (Negative)
[2024-12-16 12:40] LABS: COVID-19 CEPHEID 4-PLEX PCR Negative (Negative)
== END ==
PROVIDERS: PCP Family Medicine; Visit Provider Physician Assistant
DX: R05.1 Acute cough (principal)
CPT/HCPCS: 0241U

== ENCOUNTER → 2025-01-04 07:36 | Outpatient (CLI) | payer MEDICARE, OTHER, SELFPAY ==
--- NOTE | 2025-01-04 07:37 | DI.US.S_ITS ---
PROCEDURE: US ABDOMEN LIMITED INDICATIONS: f/u hernia repair, concern for mesh failure TECHNIQUE: Real-time scanning was performed of the right inguinal region, with image documentation. COMPARISON: [facility], , US ABDOMEN LIMITED, 10/29/2023, 7:14. FINDINGS: There is no sonographic abnormality in the right inguinal region. No hernia is seen with Valsalva maneuver. IMPRESSION: No sonographic evidence of right inguinal hernia. Approved by: Bridgette Vera M.D.,Ph.D. on 01/06/2025 at 4:35
== END ==
LOC: US 07:36
PROVIDERS: PCP Family Medicine; Referring Provider Physician Assistant; Visit Provider Physician Assistant
DX: K40.90 Unilateral inguinal hernia, without obstruction or gangrene, not specified as recurrent (principal)
CPT/HCPCS: 76705

== ENCOUNTER → 2025-08-03 07:30 | Outpatient (CLI) | payer MEDICARE, OTHER, SELFPAY ==
[2025-08-03 08:15] LABS: Add Manual Diff / Slide Review NO; Hematocrit 37.6 % (41-53); Hemoglobin 13.2 g/dL (13.5-17.5); Lymphocytes Absolute Auto 1500 /uL (1100-4500); Mean Corpuscular HGB Conc 35.0 % (30-36); Mean Corpuscular Hemoglobin 32.1 PG (26-34); Mean Corpuscular Volume 91.6 fL (80-100); Platelet Count 229 X10^3/uL (150-400)
[2025-08-03 08:40] LABS: Alanine Aminotransferase 34 IU/L (<50); Albumin 4.1 g/dL (3.5-5.0); Albumin Globulin Ratio 1.6 (1.0-2.8); Alkaline Phosphatase 91 U/L (38-126); Blood Urea Nitrogen 20 mg/dL (9-20); Calcium 9.4 mg/dL (8.4-10.2); Carbon Dioxide 26 mmol/L (22-32); Chloride 101 mmol/L (98-107); Cholesterol 146 mg/dL (140-199); Estimated Glomerular Filt Rate > 60 mL/min (>60); Globulin 2.6 g/dL (1.7-4.1); Glucose 91 mg/dL (70-99); HDL Cholesterol 78 mg/dL (40-60); HEMOLYSIS < 15 (0-50); Potassium 4.5 mmol/L (3.4-5.1); Sodium 135 mmol/L (137-145); Total Protein 6.7 g/dL (6.3-8.2); Triglycerides 66 mg/dL (35-150)
[2025-08-03 08:54] LABS: Free T3, Triiodothyronine Free 3.65 pg/mL (2.77-5.27)
[2025-08-03 09:07] LABS: TSH w/ Reflex to FT4 0.65 uIU/mL (0.47-4.68)
[2025-08-03 14:15] LABS: Ferritin 92 ng/mL (18-464)
[2025-08-04 07:41] LABS: CRP, High Sensitivity 0.46 mg/L (0.00-3.00)
== END ==
PROVIDERS: PCP Family Medicine; Referring Provider Family Medicine; Visit Provider Family Medicine
DX: I95.89 Other hypotension (principal); E78.00 Pure hypercholesterolemia, unspecified; Z12.5 Encounter for screening for malignant neoplasm of prostate; D64.9 Anemia, unspecified; K21.9 Gastro-esophageal reflux disease without esophagitis
CPT/HCPCS: 36415; 80053; 80061; 82728; 84443; 84481; 85025; 86140; G0103